=== PATIENT | female | born 1970 | race Caucasian/White ===

== ENCOUNTER → 2018-02-18 11:23 | Outpatient (CLI) | payer OTHER, SELFPAY ==
[2018-02-18 19:10] LABS: Basophils % 0.4 % (0.1-2.0); Eosinophils % 0.8 % (0.1-12.0); Hematocrit 39.3 % (37.0-47.0); Hemoglobin 12.4 g/dL (12.2-16.2); Lymphocytes # 0.8 K/mm3 (0.7-4.5); Lymphocytes % 17.5 K/mm3 (10-50); Mean Corpuscular HGB Conc 31.5 g/dL (31.8-35.4); Mean Corpuscular Hemoglobin 27.6 pg (27.0-31.2); Mean Corpuscular Volume 87.6 fl (81-99); Mean Platelet Volume 10.9 fl (7.4-10.4); Monocytes # 0.3 K/mm3 (0.1-1.0); Monocytes % 6.2 % (1.7-9.3); Neutrophils # 3.6 K/mm3 (1.8-7.8); Neutrophils % 75.1 % (37.0-80.0); Platelet Count 88 K/mm3 (142-424); Red Blood Count 4.49 M/mm3 (4.20-5.40); Red Cell Distribution Width 14.6 % (11.5-17.5); White Blood Count 4.7 K/mm3 (4.8-10.8)
[2018-02-18 19:35] LABS: Hemoglobin A1C 8.2 % (0.0-7.0)
[2018-02-18 19:53] LABS: Alanine Aminotransferase 38 U/L (12-78); Albumin Level 3.3 gm/dL (3.4-5.0); Albumin/Globulin Ratio 0.9 (1.1-1.8); Alkaline Phosphatase 95 U/L (46-116); Anion Gap 10.2 mEq/L (5-15); Aspartate Amino Transferase 35 U/L (15-37); Bilirubin,Total 0.2 mg/dL (0.2-1.0); Blood Urea Nitrogen 10 mg/dL (7-18); Calcium 8.2 mg/dL (8.5-10.1); Carbon Dioxide 31 mmol/L (21.0-32.0); Chloride 97 mmol/L (98-107); Cholesterol 135 mg/dL (140-200); Creatinine,Serum 0.83 mg/dL (0.55-1.02); Estimated Glomerular Filt Rate 73 ml/min (>60); GFR (African American) 89 ML/MIN (>60); Globulin 3.8 gm/dl (1.3-3.2); HDL Cholesterol 34 mg/dL (29-89); LDL Cholesterol 83 mg/dL (0-130); Potassium 3.2 mmoL/L (3.5-5.1); Sodium 135 mmol/L (136-145); T4 (Thyroxine) 7.5 ug/dl (4.7-13.3); Thyroid Stimulating Hormone 1.98 uIU/ml (0.358-3.740); Total Protein,Serum 7.1 gm/dL (6.4-8.2); Triglycerides 88 mg/dL (30-200); VLDL Cholesterol 18 mg/dL (0-40)
[2018-02-18 20:06] LABS: Glucose 410 mg/dL (74-106)
[2018-02-19 09:18] LABS: Creatinine, Urine 36.5 mg/dL (Not Estab.); Microalbumin, Urine 16.8 ug/mL (Not Estab.)
[2018-02-20 11:38] LABS: Vitamin D 25 Hydroxy 12.7 ng/mL (30.0-100.0)
== END ==
PROVIDERS: Visit Provider Nurse Practitioner Family
DX: E11.9 Type 2 diabetes mellitus without complications (principal)
CPT/HCPCS: 80053; 80061; 82043; 82570; 82652; 83036; 84436; 84443; 85025

== ENCOUNTER → 2018-03-16 15:37 | Outpatient (REF) | payer OTHER, SELFPAY ==
[2018-03-16 18:53] LABS: Amphetamine/Metha Screen,Urine Negative ng/mL (<1000); Barbiturates Screen,Urine Negative ng/mL (<200); Benzodiazepines Screen,Urine Negative ng/mL (200); Cannabinoid Screen,Urine Negative ng/mL (<50); Cocaine Screen,Urine Negative ng/g (<300); Methadone Screen,Urine Negative ng/mL (<300); Opiate Screen,Urine Negative ng/mL (<300); Phencyclidine Screen,Urine Negative ng/mL (<25)
== END ==
LOC: LAB 15:37
PROVIDERS: Visit Provider Nurse Practitioner Family
DX: Z79.899 Other long term (current) drug therapy (principal)
CPT/HCPCS: 80305

== ENCOUNTER → 2018-03-17 16:24 | Outpatient (CLI) | payer OTHER, SELFPAY ==
--- NOTE | 2018-03-17 16:26 | XR_ITS ---
XR chest 2V HISTORY: ITS.REASON: cough ORDERING PHYSICIAN: Jaqueline Jaeger PATIENT AGE: 47 years COMPARISON: FINDINGS: The cardiomediastinal silhouette and pulmonary vascularity are within normal limits. The lungs are clear without infiltrates, suspicious nodules, or pleural effusions. Degenerative changes are present in the thoracic spine.. IMPRESSION: No change with no acute finding
== END ==
PROVIDERS: PCP Nurse Practitioner Family; Visit Provider Nurse Practitioner Family
DX: R09.89 Other specified symptoms and signs involving the circulatory and respiratory systems (principal); R05 Cough; R06.2 Wheezing
CPT/HCPCS: 71046

== ENCOUNTER → 2018-09-17 13:45 | Outpatient (CLI) | payer OTHER, SELFPAY ==
--- NOTE | 2018-09-17 13:48 | XR_ITS ---
XR shoulder LT min 2V HISTORY: Follow-up fracture ITS.REASON: regular views and axillary view ORDERING PHYSICIAN: Kostas Luke MD PATIENT AGE: 47 years Comparison: 09/12/2018 FINDINGS: Comminuted fracture of the left humeral neck once again noted with medial displacement of the distal fracture fragment x 12 mm. No evidence of dislocation. IMPRESSION: No change comminuted displaced left humeral neck fracture
== END ==
PROVIDERS: PCP Nurse Practitioner Family; Visit Provider Orthopaedic Surgery
DX: S42.202A Unspecified fracture of upper end of left humerus, initial encounter for closed fracture (principal)
CPT/HCPCS: 73030

== ENCOUNTER → 2018-09-28 14:48 | Outpatient (CLI) | payer OTHER, SELFPAY ==
--- NOTE | 2018-09-28 14:49 | CT_ITS ---
CT shoulder LT wo con INDICATION: Shoulder pain and deformity, fracture following injury, evaluate fracture fragments and displacement ITS.REASON: evaluate fracture / without contrast ORDERING PHYSICIAN: Kostas Luke MD PATIENT AGE: 47 years COMPARISON: 09/17/2018 TECHNIQUE: Axial images are obtained without contrast. Sagittal and coronal reformatted images are reviewed as well. All CT scans at the facility use one or more dose reduction, viz: automated exposure control, ma/kV adjustment per patient size (including targeted exams where dose is matched to indication, i.e. head), or iterative reconstruction technique. FINDINGS: There is a comminuted displaced fracture of the proximal humerus. There are 3 main fracture fragments the fracture having a Y shaped 3-D reformatted images. The main distal fracture fragment is displaced medially by approximately 9 mm. There are a few comminuted fragments at this fracture line. Fragment also extends into the greater tuberosity and is not significantly displaced. There is no evidence of glenoid dislocation. There is increased density within the soft tissues about the fracture site which may be due to early calcification. Blood in this region is also a consideration. There is edema of the surrounding soft tissues. A small nodular opacity is present in the left upper lobe anteriorly 5 mm. IMPRESSION: Comminuted fracture of the neck of the left humerus with extension into the greater tuberosity with mild displacement of the main distal fracture fragment. No evidence of dislocation
== END ==
PROVIDERS: PCP Nurse Practitioner Family; Visit Provider Orthopaedic Surgery
DX: S42.209A Unspecified fracture of upper end of unspecified humerus, initial encounter for closed fracture (principal)
CPT/HCPCS: 73200

== ENCOUNTER → 2018-10-07 15:22 | Outpatient (CLI) | payer OTHER, SELFPAY ==
--- NOTE | 2018-10-07 15:25 | XR_ITS ---
XR shoulder LT min 2V Ordering Physician: Kostas Luke MD Patient Age: 48 years: Female HISTORY: ITS.REASON: internal, external and y views TECHNIQUE: 3 view left shoulder. COMPARISON :09/17/2018. FINDINGS Comminuted spiral fracture of the proximal left humerus extending up to the anatomical neck and I believe through the base of the greater tuberosity. AP view appears similar to the previous 09/17/2018 study. Medial displacement of distal fracture fragment on this view with early healing new bone formation evident.. The Y view shows anterior displacement of distal fracture fragment and angulation at the fracture. Actually the angulation with better seen on prior studies. As well as a mild fragmentation at this fracture The humeral head articulates with the glenoid but is rotated. AC joint intact. Upper left ribs intact IMPRESSION: Healing comminuted fracture through the proximal humerus. Is comminuted spiral Fracture Involves the surgical neck extends upward to involve greater tuberosity.. Early healing evident at the fracture.. The Angulation, & displacement persist with no prominent nor appreciable change in position since prior studies
== END ==
PROVIDERS: PCP Nurse Practitioner Family; Visit Provider Orthopaedic Surgery
DX: S42.202A Unspecified fracture of upper end of left humerus, initial encounter for closed fracture (principal)
CPT/HCPCS: 73030

== ENCOUNTER → 2018-10-27 13:15 | Outpatient (CLI) | payer OTHER, SELFPAY ==
--- NOTE | 2018-10-27 13:18 | XR_ITS ---
XR shoulder LT min 2V HISTORY: Follow-up fracture ITS.REASON: internal, external and y views ORDERING PHYSICIAN: Kostas Luke MD PATIENT AGE: 48 years Comparison: 10/07/2018 FINDINGS: There is a healing comminuted fracture involving the neck of the humerus. The distal fracture fragment is displaced medially by approximately 8 mm. There is increasing callus formation. No evidence of dislocation. IMPRESSION: Healing displaced fracture of the proximal left humerus
== END ==
PROVIDERS: PCP Emergency Medicine; Visit Provider Orthopaedic Surgery
DX: S42.202D Unspecified fracture of upper end of left humerus, subsequent encounter for fracture with routine healing (principal)
CPT/HCPCS: 73030

== ENCOUNTER 2018-12-10 11:00 | Outpatient (RCR) | payer OTHER, SELFPAY ==
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
== END 2018-12-10 11:10 | disposition home or self-care (01) ==
LOC: OT 11:00
PROVIDERS: Visit Provider Orthopaedic Surgery
DX: S42.202D Unspecified fracture of upper end of left humerus, subsequent encounter for fracture with routine healing (principal)
CPT/HCPCS: 97014; 97110; 97140; 97165; G0283

== ENCOUNTER → 2018-12-10 11:38 | Outpatient (CLI) | payer OTHER, SELFPAY ==
--- NOTE | 2018-12-10 11:42 | XR_ITS ---
XR shoulder LT min 2V HISTORY: Follow-up fracture ITS.REASON: follow up lt proximal humerus fracture ORDERING PHYSICIAN: Kostas Luke MD PATIENT AGE: 48 years Comparison: 10/27/2018 FINDINGS: Healing displaced proximal left humeral fracture once again noted. There is 2 cm medial displacement of the distal fracture fragment. There is abundant callus formation laterally. Fracture line is still visible on frontal view. There is subacromial stenosis with suspected rotator cuff tear. IMPRESSION: 1. No change in healing displaced humeral neck and proximal humeral shaft fracture. 2. Subacromial stenosis with high right humeral head suspicious for rotator cuff tear
== END ==
PROVIDERS: PCP Nurse Practitioner Family; Visit Provider Orthopaedic Surgery
DX: S42.202D Unspecified fracture of upper end of left humerus, subsequent encounter for fracture with routine healing (principal)
CPT/HCPCS: 73030

== ENCOUNTER 2020-05-03 16:44 | Emergency (ER) | payer SELFPAY ==
--- NOTE | 2020-05-03 16:43 | ECG_ITS ---
APPROVED REPORT Exam: Resting ECG HR:93 bpm ECG Measurements Heart Rate 93 AXES MD 156 P 21 QRSd 78 QRS 7 QT 368 T 23 QTc 457 <Conclusion> Normal sinus rhythm Normal ECG Electronically signed by : Marito Earl, 05/05/2020 11:45:53
[2020-05-03 16:44] VITALS: BP 132/81; PULSE 95; RESP 16; TEMP 37.7; O2SAT 98; BMI 35.4
--- NOTE | 2020-05-03 16:46 | XR_ITS ---
PROCEDURE: XR CHEST PORTABLE CLINICAL HISTORY: chest pain Smoker, chest pain COMPARISON: CXR CHEST(2 VIEWS-NOT PORTABLE) from 03/10/[address] CHEST W/ CONTRAST from 04/03/2016 CXR2V XR chest 2V from 03/17/2018 CXR2 XR chest AP from 09/12/2018 FINDINGS: The cardiomediastinal silhouette and pulmonary vascularity are within normal limits. The lungs are clear without infiltrates, suspicious nodules, or pleural effusions. Degenerative changes of the shoulders with old left proximal humerus fracture IMPRESSION: No acute findings. Dictated by: Cristian Mckeon MD 05/04/2020 08:33 Electronically signed by Cristian Mckeon MD in [place] 05/04/2020 08:33
--- NOTE | 2020-05-03 16:55 | HMH.EDGENADL ---
ED Disposition Clinical Impression: Chest pain, atypical Diabetes Qualifiers: Diabetes mellitus type: type 2 Diabetes mellitus communication center operator insulin use: without communication center operator use Diabetes mellitus complication status: without complication Qualified Code(s): E11.9 - Type 2 diabetes mellitus without complications Disposition: Home, Self-Care Condition on Discharge: Good Instructions: DI for Atypical Chest Pain, DI for Diabetes Type 2 Additional Instructions: You have been evaluated for chest pain, atypical. Please continue taking Tylenol and ibuprofen for pain. Restart taking metformin and follow-up with your primary care doctor as soon as available. Return to the emergency department if you have any new or worsening symptoms. Prescriptions: Metformin HCl [Glucophage 500mg Tablet] 500 mg PO BID #30 tab Transmission Status: Received by [facility] Referrals: Provider,Referral, [Primary Care Provider] - Forms: Work/School Release Time of Disposition: 19:39 - Critical Care Critical Care Time: No Attestation: On 05/03/20, the high probability of a clinically significant, sudden or life threatening deterioration of the following system(s) required my full and direct attention, intervention and personal management. The time I documented below is in addition to time spent performing reported procedures but includes the following listed in this critical care notation. Medical Decision Making - Kashif Inquiry Pt receiving controlled substance: No Vital Signs: 05/03/20 16:44 05/03/20 16:56 05/03/20 17:37 Temperature 99.8 F H Temperature Source Oral Pulse Rate [Right Radial] 95 H 93 H 91 H Respiratory Rate 16 Blood Pressure [Right Arm] 132/81 132/81 103/64 L Blood Pressure Mean [Right Arm] 98 98 77 Blood Pressure Source [Right Arm] Automatic Cuff Automatic Cuff Blood Pressure Position [Right Arm] Sitting Sitting Sitting 02 Sat by Pulse Oximetry 98 98 97 Oxygen Delivery Method Room Air Room Air Room Air 05/03/20 18:41 Temperature Temperature Source Pulse Rate [Right Radial] 100 H Respiratory Rate Blood Pressure [Right Arm] 134/98 H Blood Pressure Mean [Right Arm] 110 Blood Pressure Source [Right Arm] Automatic Cuff Blood Pressure Position [Right Arm] Sitting 02 Sat by Pulse Oximetry 98 Oxygen Delivery Method Room Air - Lab Data Lab Results 05/03/20 17:00: WBC 4.1 L, RBC 4.36, Hgb 12.7, Hct 38.6, MCV 88.4, MCH 29.1, MCHC 32.9, RDW 16.8, Plt Count 67 L, MPV 9.4, Neut % (Auto) 73.7, Lymph % (Auto) 18.1, [place] % (Auto) 5.8, Eos % (Auto) 2.0, Baso % (Auto) 0.5, Neut # (Auto) 3.0, Lymph # (Auto) 0.8, [place] # (Auto) 0.2, Eos # (Auto) 0.1, Baso # (Auto) 0.0 05/03/20 17:00: Troponin I < 0.01 05/03/20 17:00: Sodium 138, Potassium 3.9, Chloride 104, Carbon Dioxide 29, Anion Gap 8.9, BUN 15, Creatinine 0.60, Estimated Creat Clear 161, Estimated GFR 106, Est GFR ( Amer) 128, Glucose 217 H, Calcium 8.1 L 05/03/20 19:00: Troponin I < 0.01 Result diagrams: 05/03/20 17:00 05/03/20 17:00 Orders (Tests/Meds): ED MEDICATIONS Discontinued Medications Generic Name Dose Route Start Last Admin Trade Name Freq PRN Reason Stop Dose Admin Acetaminophen 1,000 mg 05/03/20 19:11 05/03/20 19:13 Tylenol 500mg Tablet PO 05/03/20 19:12 1,000 mg ONCE ONE Administration ORDERS Category Date Time Status XR chest portable Stat Exams 05/03/20 16:46 Taken Troponin I Q3H Lab 05/03/20 22:15 Ordered Troponin I Q3H Lab 05/03/20 23:00 Ordered Troponin I Q3H Lab 05/04/20 01:15 Ordered Troponin I Stat Lab 05/03/20 19:01 Ordered - ECG Data Tracing #1 Sinus rhythm with ventricular rate of 93 bpm. QRS 78, QTc 457. Medical Decision Narrative: Summary this is a 49-year-old female with history of type 2 diabetes presenting to the emergency department with chest pain. Patient is stable on arrival. Vital signs within normal limits. Differential diagnoses include ACS, vasospasm,
[2020-05-03 16:56] VITALS: BP 132/81; PULSE 93; O2SAT 98
[2020-05-03 17:11] LABS: Basophils % 0.5 % (0.1-2.0); Eosinophils # 0.1 K/mm3 (0.0-0.4); Hematocrit 38.6 % (37.0-47.0); Hemoglobin 12.7 g/dL (12.2-16.2); Lymphocytes # 0.8 K/mm3 (0.7-4.5); Lymphocytes % 18.1 % (10-50); Mean Corpuscular HGB Conc 32.9 g/dL (31.8-35.4); Mean Corpuscular Hemoglobin 29.1 pg (27.0-31.2); Mean Corpuscular Volume 88.4 fl (81-99); Mean Platelet Volume 9.4 fl (7.4-10.4); Monocytes # 0.2 K/mm3 (0.1-1.0); Monocytes % 5.8 % (1.7-9.3); Neutrophils % 73.7 % (37.0-80.0); Platelet Count 67 K/mm3 (142-424); Red Blood Count 4.36 M/mm3 (4.20-5.40); Red Cell Distribution Width 16.8 % (11.5-17.5); White Blood Count 4.1 K/mm3 (4.8-10.8)
[2020-05-03 17:15] LABS: Chloride 104 mmol/L (98-107); Potassium 3.9 mmoL/L (3.5-5.1); Sodium 138 mmol/L (136-145)
[2020-05-03 17:18] LABS: Blood Urea Nitrogen 15 mg/dl (7-17); Creatinine Clearance Estimated 161 mL/min (50-200); Estimated Glomerular Filt Rate 106 ml/min (>60); GFR (African American) 128 ML/MIN (>60)
[2020-05-03 17:19] LABS: Anion Gap 8.9 mEq/L (5-15); Calcium 8.1 mg/dl (8.4-10.2); Carbon Dioxide 29 mmol/L (22.0-30.0); Glucose 217 mg/dl (74-100)
[2020-05-03 17:34] LABS: Troponin I < 0.01 ng/ml (0.00-0.034)
[2020-05-03 17:37] VITALS: BP 103/64; PULSE 91; O2SAT 97
[2020-05-03 18:41] VITALS: BP 134/98; PULSE 100; O2SAT 98
[2020-05-03 19:52] LABS: Troponin I < 0.01 ng/ml (0.00-0.034)
[2020-05-03 20:34] VITALS: BP 106/70; PULSE 83; RESP 16; TEMP 37.3; O2SAT 99
== END 2020-05-03 20:37 | disposition home or self-care (01) ==
PROVIDERS: Emergency Provider Emergency Medicine
DX: R07.89 Other chest pain (principal); K21.9 Gastro-esophageal reflux disease without esophagitis; E11.65 Type 2 diabetes mellitus with hyperglycemia; I10 Essential (primary) hypertension; E78.5 Hyperlipidemia, unspecified; Z88.1 Allergy status to other antibiotic agents; Z79.84 Long term (current) use of oral hypoglycemic drugs; Z79.899 Other long term (current) drug therapy
CPT/HCPCS: 71045; 80048; 84484; 85025; 93005; 99283

== ENCOUNTER 2020-05-13 17:33 | Emergency (ER) | payer MEDICAID, SELFPAY ==
--- NOTE | 2020-05-13 | ECG_ITS ---
APPROVED REPORT Exam: Resting ECG HR:108 bpm ECG Measurements Heart Rate 108 AXES [place] 162 P 38 QRSd 76 QRS 14 QT 344 T 23 QTc 460 <Conclusion> Sinus tachycardia Possible Left atrial enlargement Borderline ECG Electronically signed by : Dc Ellington, 05/14/2020 07:59:45
[2020-05-13 17:33] VITALS: BP 158/87; PULSE 107; RESP 20; TEMP 36.7; O2SAT 100; BMI 35.4
[2020-05-13 17:35] VITALS: BP 158/87; PULSE 107; RESP 22; O2SAT 100
[2020-05-13 17:38] VITALS: BMI 35.4
--- NOTE | 2020-05-13 17:38 | CT_ITS ---
PROCEDURE: CT ABDOMEN PELVIS WO CON CLINICAL INDICATION: abd swelling COMPARISON: ABDPELW CT ABD PELVIS W/ CONTRAST from 04/03/2016 TECHNIQUE: Axial images obtained with sagittal and coronal reformats. All CT scans at the facility use one or more dose reduction, viz: automated exposure control, ma/kV adjustment per patient size (including targeted exams where dose is matched to indication, i.e. head), or iterative reconstruction technique. FINDINGS: Lower thorax: The lower lung chatterjee are clear and there is no pleural fluid. There is borderline cardiomegaly. ABDOMEN: Liver: The overall liver is somewhat small with nodularity of the contour which is more prominent than on the previous CT scan abdomen and pelvis 04/03/2016. There is marked abdominal ascites. Prominent varices are seen just anterior and superior to the left lobe of the liver and perisplenic varices are noted as well. Gallbladder: The gallbladder is normal in size containing several partially calcified stones. Pancreas: No masses or peripancreatic fluid collections. Spleen: Definite splenomegaly showing slight interval increase in splenic size from the previous CT scan. Adrenals: unremarkable Kidneys/ureters: unremarkable no renal or ureteral calculi and there is no obstructive uropathy of either kidney. ABDOMEN & PELVIS: Stomach bowel: Stomach is moderately distended with ingested food particles. The small bowel loops are normal in caliber seen floating amongst the ascitic fluid. There is scattered stool and gas seen throughout the colon Peritoneum: Marked abdominal ascites with fluid extending into the pelvis and into the cul-de-sac. Lymph nodes: No enlarged lymph nodes apparent. Vasculature: No evidence of abdominal aortic aneurysm. No retroperitoneal hemorrhage evident. Bones: No acute fracture Other: There is prominent diffuse generalized anasarca of the subcutaneous tissues of the abdominal wall and pelvic wall PELVIS:, moderate ascitic fluid in the cul-de-sac as noted Reproductive: unremarkable Bladder: The urinary bladder is decompressed. Appendix: Not definitely visualize in view of the large amount of ascitic fluid but there are no findings to suggest appendicitis. IMPRESSION: Findings all consistent with advanced cirrhosis of the liver with prominent abdominal ascites and for hypertension, nodularity of the liver contour, generalized splenomegaly and varices as mentioned along with prominent generalized anasarca of the subcutaneous tissues Dictated by: Dr. Narendra Dutton MD 05/13/2020 19:[address] Narendra Dutton MD in [place] 05/13/2020 19:08
--- NOTE | 2020-05-13 17:38 | PC.NURSE ---
ER MD gave verbal orders on pt for Ct abd/pelvis no contrast, states no chest pain work up on pt, states pt was more concerned when speaking to him about abd swelling.
--- NOTE | 2020-05-13 18:02 | PC.NURSE ---
Pt with rad
[2020-05-13 18:09] VITALS: BP 128/78; PULSE 101; O2SAT 100
[2020-05-13 18:48] VITALS: BP 121/74; PULSE 102; O2SAT 99
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
--- NOTE | 2020-05-13 19:04 | PC.NURSE ---
went to d/c pt, pt reports chest pain, notified ER MD. ER MD at to speak with pt. ER MD gave verbal order for Morphine 4mg IM pt waiting on a funeral limousine driver
[2020-05-13 19:28] VITALS: BP 133/76; PULSE 98; RESP 20; TEMP 36.7; O2SAT 100
--- NOTE | 2020-05-13 19:30 | PC.NURSE ---
Instructed pt that is she began to feel worse or if pain does not improve to return to the ER, pt verbalized understanding. Pt states she understood instructions and POC as explained per ER MD.
== END 2020-05-13 19:30 | disposition home or self-care (01) ==
PROVIDERS: Emergency Provider Family Medicine
DX: L56.8 Other specified acute skin changes due to ultraviolet radiation (principal); E11.9 Type 2 diabetes mellitus without complications; I10 Essential (primary) hypertension; E78.5 Hyperlipidemia, unspecified; K21.9 Gastro-esophageal reflux disease without esophagitis; Z79.84 Long term (current) use of oral hypoglycemic drugs; Z88.1 Allergy status to other antibiotic agents; Z79.899 Other long term (current) drug therapy
CPT/HCPCS: 74176; 93005; 96372; 99283

== ENCOUNTER 2020-06-02 13:31 | Emergency (ER) | payer MEDICAID, SELFPAY ==
[2020-06-02 13:32] VITALS: BP 137/89; PULSE 91; RESP 18; TEMP 37; O2SAT 100; BMI 31.6
--- NOTE | 2020-06-02 13:47 | XR_ITS ---
PROCEDURE: XR FOOT LT MIN 3V CLINICAL INDICATION: pain The COMPARISON: FTL3 FOOT-LT-3 VIEWS from 01/07/2015 FINDINGS: There is mild hallux valgus with osteoarthritic change at the 1st metatarsophalangeal joint. 2 extra ossicles are present along the medial aspect of the 1st MTP joint. No acute fracture or dislocation is evident. There is thickening of the proximal phalanx of the 3rd digit. Calcification is present along the plantar surface of the foot anterior to a mildly prominent calcaneal spur. Osteoarthritic changes are present at the talonavicular joint and the cuboid cuneiform joint. Calcification is present along the medial aspect of the foot with a type 2 os navicularis Other findings:None. IMPRESSION: Degenerative changes as described above slightly worse from the previous exam. No acute finding. Dictated by: Cristian Mckeon MD 06/02/2020 14:28 Electronically signed by Cristian Mckeon MD in [place] 06/02/2020 14:28
[2020-06-02 13:58] VITALS: BP 134/73; PULSE 91; RESP 20; O2SAT 98
--- NOTE | 2020-06-02 13:58 | HMH.EDGENADL ---
ED Disposition Clinical Impression: Right foot sprain, Elevated transaminase level, Dyspepsia Disposition: Home, Self-Care Condition on Discharge: Good Instructions: Sprain Prescriptions: Ibuprofen [Ibuprofen 800mg Tablet] 800 mg PO TIDP PRN #20 tab PRN Reason: Moderate Pain Transmission Status: Pending to [id number] Referrals: Saniya Mayers APRN [Primary Care Provider] - Louie Washburn MD [Staff Physician] - 3 days Time of Disposition: 15:24 - Critical Care Critical Care Time: No Attestation: On , the high probability of a clinically significant, sudden or life threatening deterioration of the following system(s) required my full and direct attention, intervention and personal management. The time I documented below is in addition to time spent performing reported procedures but includes the following listed in this critical care notation. Medical Decision Making - Kashif Inquiry Pt receiving controlled substance: No Vital Signs: 06/02/20 13:32 06/02/20 13:58 06/02/20 14:51 Temperature 98.6 F Temperature Source Oral Pulse Rate [Right] 91 H 91 H 95 H Respiratory Rate 18 20 20 Blood Pressure [Right Arm] 137/89 134/73 128/74 Blood Pressure Mean [Right Arm] 105 93 92 Blood Pressure Source [Right Arm] Automatic Cuff Automatic Cuff Blood Pressure Position [Right Arm] Supine Supine 02 Sat by Pulse Oximetry 100 98 98 Oxygen Delivery Method Room Air Room Air Room Air - Lab Data Lab Results 06/02/20 14:23: WBC 3.1 L, RBC 4.29, Hgb 12.6, Hct 38.9, MCV 90.8, MCH 29.5, MCHC 32.5, RDW 16.4, Plt Count 66 L, MPV 11.4 H, Neut % (Auto) 69.7, Lymph % (Auto) 21.4, [place] % (Auto) 6.6, Eos % (Auto) 1.8, Baso % (Auto) 0.4, Neut # (Auto) 2.2, Lymph # (Auto) 0.7, [place] # (Auto) 0.2, Eos # (Auto) 0.1, Baso # (Auto) 0.0 06/02/20 14:23: Sodium 136, Potassium 3.1 L, Chloride 106, Carbon Dioxide 24, Anion Gap 9.1, BUN 12, Creatinine 0.50 L, Estimated Creat Clear 183, Estimated GFR 131, Est GFR ( Amer) 158, Glucose 258 H, Calcium 8.3 L, Total Bilirubin 3.4 H, AST 488 H*, ALT 323 H*, Alkaline Phosphatase 143 H, Total Protein 7.7, Albumin 3.5, Globulin 4.2 H, Albumin/Globulin Ratio 0.8 L, Lipase 265 Result diagrams: 06/02/20 14:23 06/02/20 14:23 Orders (Tests/Meds): ED MEDICATIONS Generic Name Dose Route Start Last Admin Trade Name Freq PRN Reason Stop Dose Admin Diphenhydramine HCl 25 mg 06/02/20 14:00 06/02/20 14:30 Benadryl Elixir 12.5mg/5ml Udc PO 07/02/20 13:59 25 mg ONCE BETTINA Administration Discontinued Medications Generic Name Dose Route Start Last Admin Trade Name Freq PRN Reason Stop Dose Admin Al Hydrox/Mg Hydrox/Simethicone 30 ml 06/02/20 13:46 06/02/20 14:30 Maalox 30ml Udc PO 06/02/20 13:47 30 ml ONCE ONE Administration Sodium Chloride 1,000 mls @ 999 mls/hr 06/02/20 14:00 Sod Chlor 0.9% 1000ml Bag IV 06/02/20 15:00 .Q1H1M BETTINA Lidocaine HCl 15 ml 06/02/20 13:46 06/02/20 14:30 Lidocaine 2% Viscous Solution 15ml Udc PO 06/02/20 13:47 15 ml ONCE ONE Administration Ondansetron HCl 4 mg 06/02/20 13:46 Zofran 4mg/2ml Vial IV 06/02/20 13:47 ONCE ONE - Radiology Data #1 IMPRESSION: Degenerative changes as described above slightly worse from the previous exam. No acute finding. - Reevaluation(s) Time: 15:22 Reevaluation #1: On reevaluation, patient is feeling better. Repeat abdominal exam is improved. No vomiting. Tolerating oral intake. Patient does have elevated liver enzymes as well as elevated bilirubin. Patient's lipase is normal. I did explain to her that I would like to obtain CT scan and possible evaluation by gastroenterology. Patient is declining at this time because she feels better. She states that she does not need any more testing. I did explain to her the risks and benefits of not pursuing further care. She verbalized understanding. Is alert and oriented. She is asking for
[2020-06-02 14:41] LABS: Basophils % 0.4 % (0.1-2.0); Eosinophils # 0.1 K/mm3 (0.0-0.4); Eosinophils % 1.8 % (0.1-12.0); Hematocrit 38.9 % (37.0-47.0); Hemoglobin 12.6 g/dL (12.2-16.2); Lymphocytes # 0.7 K/mm3 (0.7-4.5); Lymphocytes % 21.4 % (10-50); Mean Corpuscular HGB Conc 32.5 g/dL (31.8-35.4); Mean Corpuscular Hemoglobin 29.5 pg (27.0-31.2); Mean Corpuscular Volume 90.8 fl (81-99); Mean Platelet Volume 11.4 fl (7.4-10.4); Monocytes # 0.2 K/mm3 (0.1-1.0); Monocytes % 6.6 % (1.7-9.3); Neutrophils # 2.2 K/mm3 (1.8-7.8); Neutrophils % 69.7 % (37.0-80.0); Platelet Count 66 K/mm3 (142-424); Red Blood Count 4.29 M/mm3 (4.20-5.40); Red Cell Distribution Width 16.4 % (11.5-17.5); White Blood Count 3.1 K/mm3 (4.8-10.8)
[2020-06-02 14:49] LABS: Chloride 106 mmol/L (98-107); Potassium 3.1 mmoL/L (3.5-5.1); Sodium 136 mmol/L (136-145)
[2020-06-02 14:51] VITALS: BP 128/74; PULSE 95; RESP 20; O2SAT 98
[2020-06-02 14:51] LABS: Blood Urea Nitrogen 12 mg/dl (7-17); Creatinine Clearance Estimated 183 mL/min (50-200); Estimated Glomerular Filt Rate 131 ml/min (>60); GFR (African American) 158 ML/MIN (>60)
[2020-06-02 14:52] LABS: Alanine Aminotransferase 323 U/L (12-78); Albumin Level 3.5 g/dl (3.5-5.0); Albumin/Globulin Ratio 0.8 (1.1-1.8); Alkaline Phosphatase 143 U/L (38-126); Anion Gap 9.1 mEq/L (5-15); Aspartate Amino Transferase 488 U/L (14-36); Bilirubin,Total 3.4 mg/dl (0.2-1.3); Calcium 8.3 mg/dl (8.4-10.2); Carbon Dioxide 24 mmol/L (22.0-30.0); Globulin 4.2 g/dL (1.3-3.2); Glucose 258 mg/dl (74-100); Lipase 265 U/L (23-300); Total Protein,Serum 7.7 g/dl (6.3-8.2)
[2020-06-02 15:33] VITALS: BP 132/73; PULSE 90; RESP 16; TEMP 36.9; O2SAT 99
== END 2020-06-02 15:34 | disposition home or self-care (01) ==
PROVIDERS: Emergency Provider Emergency Medicine; PCP Nurse Practitioner Family
DX: S93.601A Unspecified sprain of right foot, initial encounter (principal); X50.1XXA Overexertion from prolonged static or awkward postures, initial encounter; R10.13 Epigastric pain; R74.0 Nonspecific elevation of levels of transaminase and lactic acid dehydrogenase [LDH]; E11.65 Type 2 diabetes mellitus with hyperglycemia; I10 Essential (primary) hypertension; K21.9 Gastro-esophageal reflux disease without esophagitis; E78.5 Hyperlipidemia, unspecified; F33.1 Major depressive disorder, recurrent, moderate
CPT/HCPCS: 73630; 80053; 83690; 85025; 96365; 96375; 99283

== ENCOUNTER 2020-06-22 16:16 | Inpatient (IN) | payer MEDICAID, SELFPAY ==
[2020-06-22 16:18] VITALS: BP 129/85; PULSE 105; RESP 14; TEMP 36.9; O2SAT 98; BMI 36.1
--- NOTE | 2020-06-22 16:40 | US_ITS ---
PROCEDURE: US ABDOMEN LIMITED CLINICAL INDICATION: swelling, pain History of jaundice and cirrhosis. COMPARISON: CT ABDOMEN PELVIS WO CON from 05/13/2020 FINDINGS: Free fluid/ascites is seen in all 4 quadrants of the abdomen. PANCREAS: Unremarkable. No obvious mass or abnormal fluid collection. No ductal dilatation LIVER: Overall there coarse and heterogeneous echotexture of the liver parenchyma, consistent with cirrhosis.. No intrahepatic biliary ductal dilatation evident. There is appropriate direction of blood flow within a non dilated portal vein RIGHT KIDNEY: Unremarkable. Normal size and echogenicity. No hydronephrosis GALLBLADDER: The gallbladder is contracted. Demonstrated nonspecific 8.9 millimeter wall thickening. Minimal pericholecystic fluid is seen. No intraluminal gallbladder stone is seen. IMPRESSION: 1.Coarse/heterogeneous echotexture of the liver parenchyma, consistent with cirrhosis. 2. Ascites. 3. Contracted gallbladder with diffuse nonspecific wall thickening, there is can be seen in ascites. 4. Right kidney within normal limits. Dictated by: Rachel Zaidi 06/22/2020 18:26 Electronically signed by Rachel Zaidi in [place] 06/22/2020 18:26
[2020-06-22 16:50] LABS: Basophils % 0.4 % (0.1-2.0); Eosinophils % 1.2 % (0.1-12.0); Hematocrit 38.6 % (37.0-47.0); Lymphocytes # 0.9 K/mm3 (0.7-4.5); Lymphocytes % 24.6 % (10-50); Mean Corpuscular HGB Conc 33.6 g/dL (31.8-35.4); Mean Corpuscular Hemoglobin 30.5 pg (27.0-31.2); Mean Corpuscular Volume 90.7 fl (81-99); Mean Platelet Volume 10.5 fl (7.4-10.4); Monocytes # 0.3 K/mm3 (0.1-1.0); Monocytes % 9.3 % (1.7-9.3); Neutrophils # 2.2 K/mm3 (1.8-7.8); Neutrophils % 64.5 % (37.0-80.0); Platelet Count 55 K/mm3 (142-424); Red Blood Count 4.25 M/mm3 (4.20-5.40); Red Cell Distribution Width 17.9 % (11.5-17.5); White Blood Count 3.5 K/mm3 (4.8-10.8)
[2020-06-22 16:52] LABS: Chloride 102 mmol/L (98-107); Potassium 3.6 mmoL/L (3.5-5.1); Sodium 137 mmol/L (136-145)
[2020-06-22 16:54] LABS: Blood Urea Nitrogen 10 mg/dl (7-17); Creatinine Clearance Estimated 197 mL/min (50-200); Estimated Glomerular Filt Rate 131 ml/min (>60); GFR (African American) 158 ML/MIN (>60)
[2020-06-22 16:55] LABS: Alanine Aminotransferase 284 U/L (12-78); Albumin Level 3.3 g/dl (3.5-5.0); Albumin/Globulin Ratio 0.7 (1.1-1.8); Alkaline Phosphatase 114 U/L (38-126); Anion Gap 9.6 mEq/L (5-15); Aspartate Amino Transferase 473 U/L (14-36); Bilirubin,Direct 4.6 mg/dl (0.0-0.4); Bilirubin,Indirect 1.5 mg/dL (0.0-0.9); Bilirubin,Total 6.1 mg/dl (0.2-1.3); Carbon Dioxide 29 mmol/L (22.0-30.0); Globulin 4.7 g/dL (1.3-3.2); Glucose 152 mg/dl (74-100); Lipase 102 U/L (23-300)
--- NOTE | 2020-06-22 17:00 | HMH.EDGENADL ---
ED Disposition Clinical Impression: Cirrhosis Qualifiers: Hepatic cirrhosis type: alcoholic cirrhosis Ascites presence: with ascites Qualified Code(s): K70.31 - Alcoholic cirrhosis of liver with ascites Diabetes Qualifiers: Diabetes mellitus type: type 2 Diabetes mellitus termite control servicer insulin use: without termite control servicer use Diabetes mellitus complication status: without complication Qualified Code(s): E11.9 - Type 2 diabetes mellitus without complications Disposition: Admitted as Observation Condition on Discharge: Fair Time of Disposition: 20:29 - Critical Care Critical Care Time: No Attestation: On 06/22/20, the high probability of a clinically significant, sudden or life threatening deterioration of the following system(s) required my full and direct attention, intervention and personal management. The time I documented below is in addition to time spent performing reported procedures but includes the following listed in this critical care notation. Medical Decision Making - Medical Records Medical records reviewed: Yes: I reviewed the patient's medical records. - Kashif Inquiry Pt receiving controlled substance: No Vital Signs: 06/22/20 16:18 06/22/20 18:30 06/22/20 18:52 Temperature 98.4 F 98.4 F Temperature Source Oral Oral Pulse Rate 88 Pulse Rate [Left Radial] 105 H 88 Respiratory Rate 14 20 20 Blood Pressure 132/88 Blood Pressure [Right Arm] 129/85 132/88 Blood Pressure Mean [Right Arm] 99 102 Blood Pressure Source Automatic Cuff Blood Pressure Source [Right Arm] Automatic Cuff Automatic Cuff Blood Pressure Position Sitting Blood Pressure Position [Right Arm] Sitting Supine 02 Sat by Pulse Oximetry 98 100 Oxygen Delivery Method Room Air Room Air Room Air 06/22/20 18:55 Temperature 99.4 F Temperature Source Oral Pulse Rate Pulse Rate [Left Radial] 89 Respiratory Rate 16 Blood Pressure Blood Pressure [Right Arm] 140/78 Blood Pressure Mean [Right Arm] 98 Blood Pressure Source Blood Pressure Source [Right Arm] Manual Cuff/ Auscultation Blood Pressure Position Blood Pressure Position [Right Arm] Sitting 02 Sat by Pulse Oximetry 99 Oxygen Delivery Method Room Air - Lab Data Lab Results 06/22/20 16:35: WBC 3.5 L, RBC 4.25, Hgb 13.0, Hct 38.6, MCV 90.7, MCH 30.5, MCHC 33.6, RDW 17.9 H, Plt Count 55 L, MPV 10.5 H, Neut % (Auto) 64.5, Lymph % (Auto) 24.6, [place] % (Auto) 9.3, Eos % (Auto) 1.2, Baso % (Auto) 0.4, Neut # (Auto) 2.2, Lymph # (Auto) 0.9, [place] # (Auto) 0.3, Eos # (Auto) 0.0, Baso # (Auto) 0.0 06/22/20 16:35: Sodium 137, Potassium 3.6, Chloride 102, Carbon Dioxide 29, Anion Gap 9.6, BUN 10, Creatinine 0.50 L, Estimated Creat Clear 197, Estimated GFR 131, Est GFR ( Amer) 158, Glucose 152 H, Calcium 8.0 L, Total Bilirubin 6.1 H, Direct Bilirubin 4.6 H, Indirect Bilirubin 1.5 H, AST 473 H*, ALT 284 H, Alkaline Phosphatase 114, Total Protein 8.0, Albumin 3.3 L, Globulin 4.7 H, Albumin/Globulin Ratio 0.7 L, Lipase 102 06/22/20 16:50: Acetaminophen < 10 L Result diagrams: 06/22/20 16:35 06/22/20 16:35 Orders (Tests/Meds): ED MEDICATIONS Generic Name Dose Route Start Last Admin Trade Name Freq PRN Reason Stop Dose Admin Ibuprofen 400 mg 06/22/20 18:47 Motrin 400mg Tablet PO 07/22/20 18:46 Q6HP PRN Mild Pain Insulin Human Lispro 0 unit 06/22/20 21:00 Humalog 100 Units/Ml 3ml Vial (Ssi) SQ 07/22/20 20:59 ACHS BETTINA Protocol Ondansetron HCl 4 mg 06/22/20 18:47 Zofran 4mg/2ml Vial IV 07/22/20 18:46 Q8HP PRN Nausea ORDERS Category Date Time Status Consult to Gastroenterology [CONS] Routine Cons 06/22/20 18:36 Active US RUQ [US abdomen limited] Stat Exams 06/22/20 16:40 Taken Hepatitis Panel (4) Stat Lab 06/22/20 16:35 Received - Radiology Data #1 CT 05/13/20 IMPRESSION: Findings all consistent with advanced cirrhosis of the liver with prominent abdominal ascites and for hypertension, nodularit
--- NOTE | 2020-06-22 17:29 | PC.NURSE ---
Dr. Mendez aware of critical labs.
--- NOTE | 2020-06-22 17:51 | PC.NURSE ---
er doc speaking to Saniya at this time
[2020-06-22 18:30] VITALS: BP 132/88; PULSE 88; RESP 20; O2SAT 100
[2020-06-22 18:47] LABS: Acetaminophen < 10 ug/ml (10-30)
--- NOTE | 2020-06-22 18:50 | PC.NURSE ---
Report called to Graz[facility]. Will come get the pt when available
[2020-06-22 18:52] VITALS: BP 132/88; PULSE 88; RESP 20; TEMP 36.9; O2SAT 100
[2020-06-22 18:55] VITALS: BP 132/75; BP 140/78; PULSE 83; PULSE 89; RESP 16; TEMP 36.5; TEMP 37.4; O2SAT 98; O2SAT 99; BMI 35.4
--- NOTE | 2020-06-22 18:55 | PC.NURSE ---
Pt arrived to floor at this time via w/c
[2020-06-22 20:00] VITALS: O2SAT 99
[2020-06-22 21:26] LABS: Microscopic, Urine URINE MICROSCOPIC (MICROSCOPIC)
[2020-06-22 21:34] LABS: Appearance,Urine CLEAR (Clear); Blood, Urine TRACE-I (Negative); Color,Urine DK YELLOW (Yellow); Glucose,Urine (UA) Negative (Negative); Ketones,Urine Negative (Negative); Leukocyte Esterase,Urine Negative (Negative); Nitrate,Urine Negative (Negative); Protein,Urine Negative (Negative); Urobilinogen,Urine >=8.0 EU/dl (0.2)
[2020-06-22 21:51] LABS: Bacteria,Urine 1+ /lpf; Bilirubin,Urine 2+ (Negative); Mucus,Urine 1+ /lpf
[2020-06-22 22:08] LABS: POC Glucose,Bedside 172 (70-110)
[2020-06-23 04:00] VITALS: BP 111/70; PULSE 75; RESP 18; TEMP 37.2; O2SAT 99
--- NOTE | 2020-06-23 04:50 | PC.NURSE ---
Pt new admit at start of shift. Pt has rested well this shift w/o complaints reported to staff. No SOA, tenderness or pain in regards to abdominal distention when assessed. Pt has remained NPO since midnight and took a shower in preparation for Gastro consult in AM.
[2020-06-23 05:21] VITALS: BMI 35.3
[2020-06-23 06:22] LABS: POC Glucose,Bedside 88 (70-110)
--- NOTE | 2020-06-23 07:00 | PC.NURSE ---
Pts medication locked in drawer for pharmacy.
--- NOTE | 2020-06-23 07:47 | P.CONPHA_ITS ---
[facility] Pharmacy VTE Monitoring - Patient Demographics Admission date: 06/22/20 Report Date: 06/23/20 Time: 07:47 Allergies/Adverse Reactions: Patient Allergies doxycycline [DOXYCYCLINE] Allergy (Mild, Verified 06/22/20 15:27) NA-NAUSEA/VOMITING Height: 1.6 m Weight: 90.435 kg Patient Problems: Current Active Problems (Last Updated 02/18/18 @ 11:27 by Saniya Mayers APRN) Cirrhosis (Acute) Diabetes (Chronic) - VTE Risk Labs: VTE Related Lab Results Hgb 13.0 g/dL (12.2-16.2) 06/22/20 16:35 Hct 38.6 % (37.0-47.0) 06/22/20 16:35 Plt Count 55 K/mm3 (142-424) L 06/22/20 16:35 BUN 10 mg/dl (7-17) 06/22/20 16:35 Creatinine 0.50 mg/dl (0.52-1.04) L 06/22/20 16:35 Estimated Creat Clear 197 mL/min (50-200) 06/22/20 16:35 Was VTE Risk Assessment Performed: Yes VTE Score: 3 VTE Risk Level: Low Risk Clinical Trial Participant: No - Prophylaxis VTE Prophylaxis Ordered?: Yes Types of VTE Prophylaxis: TEDS Knee High Location of Applied Device: Bilateral Lower Extremeties
[2020-06-23 08:00] VITALS: BP 106/70; PULSE 65; RESP 19; TEMP 36.7; O2SAT 100
[2020-06-23 08:24] LABS: Basophils % 0.4 % (0.1-2.0); Eosinophils # 0.1 K/mm3 (0.0-0.4); Eosinophils % 2.1 % (0.1-12.0); Hematocrit 39.6 % (37.0-47.0); Hemoglobin 12.8 g/dL (12.2-16.2); Lymphocytes # 0.7 K/mm3 (0.7-4.5); Lymphocytes % 20.6 % (10-50); Mean Corpuscular HGB Conc 32.3 g/dL (31.8-35.4); Mean Corpuscular Hemoglobin 30.4 pg (27.0-31.2); Mean Corpuscular Volume 94.1 fl (81-99); Mean Platelet Volume 10.2 fl (7.4-10.4); Monocytes # 0.3 K/mm3 (0.1-1.0); Monocytes % 10.6 % (1.7-9.3); Neutrophils # 2.2 K/mm3 (1.8-7.8); Neutrophils % 66.3 % (37.0-80.0); Platelet Count 58 K/mm3 (142-424); Red Blood Count 4.21 M/mm3 (4.20-5.40); Red Cell Distribution Width 18.2 % (11.5-17.5); White Blood Count 3.3 K/mm3 (4.8-10.8)
[2020-06-23 08:30] LABS: Chloride 103 mmol/L (98-107); Potassium 4.1 mmoL/L (3.5-5.1); Sodium 139 mmol/L (136-145)
[2020-06-23 08:33] LABS: Alanine Aminotransferase 284 U/L (12-78); Albumin Level 3.2 g/dl (3.5-5.0); Alkaline Phosphatase 115 U/L (38-126); Anion Gap 8.1 mEq/L (5-15); Aspartate Amino Transferase 533 U/L (14-36); Bilirubin,Total 6.3 mg/dl (0.2-1.3); Blood Urea Nitrogen 10 mg/dl (7-17); Carbon Dioxide 32 mmol/L (22.0-30.0); Creatinine Clearance Estimated 192 mL/min (50-200); Estimated Glomerular Filt Rate 131 ml/min (>60); GFR (African American) 158 ML/MIN (>60); Total Protein,Serum 7.9 g/dl (6.3-8.2)
[2020-06-23 08:34] LABS: Calcium 8.3 mg/dl (8.4-10.2); Glucose 110 mg/dl (74-100)
--- NOTE | 2020-06-23 09:26 | HMH.HP ---
*Admission Date: 06/22/20 *Chief complaint: Jaundice *History of present illness: 49-year-old female presented to the office with complaints of dark urine and yellowing of the eyes. After evaluation patient was sent to the ER. Patient states for the last week and a half she has had dark dori-colored urine thought she may become and wanted a test that was negative. Patient states she woke up yesterday morning noticing her skin and her eyes were yellow in her abdominal was distended. Patient was admitted for elevated liver enzymes and ascites. Consult placed for Dr. Washburn for possible paracentesis. Patient states she was told some time ago that she had some liver failure but she was unsure who her doctor was or what work-up had been done. Patient denies drinking alcohol. [facility] History I have reviewed the patient's past medical history: Yes Medical History: Reports:: Depression, Diabetes Mellitus Type 2, Gastroesophageal Reflux Disease(GERD), Hyperlipidemia, Hypertension Denies:: Cancer, Diabetes Mellitus Type 1, MRSA *Have you ever received a pneumonia vaccine?: Yes *Have you received a flu vaccine this season?: No Other Medical History: Reports: Other Other Surgeries: Yes: No Previous Surgery, Cardiac Catheterization, Colonoscopy, EGD, Other Amputation: Yes Fractures: No - *Social History Smoking Status: Never smoker Alcohol Intake: former Substance Use Type: denies use *Occupational Status:: employed Housing: other Household Members: other *Travel in the last 8 weeks: None - Psychiatric History Pschychiatric History:: Reports:: Depression Family Hx:: Cancer Review of Systems - Review of Systems Review of systems:: pertinent systems reviewed and negative unless documented below - Constitutional Denies body ache(s), Denies fatigue - Eyes Denies blurry vision - ENT Denies bleeding gums - *Cardiovascular Denies chest pain at rest - *Respiratory Denies chest congestion - *Gastrointestinal Reports bloating, Denies belching, Denies vomiting blood, Denies nausea, Denies vomiting - *Genitourinary Reports other - *Musculoskeletal Denies joint pain - Integumentary/Breasts Denies bleeding lesions - *Neurologic Denies abnormal hearing, Denies dizziness, Denies headache(s), Denies numbness, Denies weakness - Psychiatric Denies lack of enjoyment - Endocrine Denies excessive sweating - Hematologic/Lymphatic Denies easy bruising - Allergic/Immunologic Denies GI upset with certain foods Meds Home Medications Medication Instructions Recorded Confirmed Type Metformin HCl [Glucophage] 500 mg PO BID 06/22/20 06/22/20 History Allergies Allergy/AdvReac Type Severity Reaction Status Date / Time doxycycline [DOXYCYCLINE] Allergy Mild NA-NAUSEA/V Verified 06/22/20 15:27 OMITING Exam Vital signs and Labs for Last 24 Hours: Temp Pulse Resp BP Pulse Ox 98.0 F 65 19 106/70 L 100 06/23/20 08:00 06/23/20 08:00 06/23/20 08:00 06/23/20 08:00 06/23/20 08:00 Laboratory Results - last 24 hr 06/22/20 16:35: WBC 3.5 L, RBC 4.25, Hgb 13.0, Hct 38.6, MCV 90.7, MCH 30.5, MCHC 33.6, RDW 17.9 H, Plt Count 55 L, MPV 10.5 H, Neut % (Auto) 64.5, Lymph % (Auto) 24.6, [place] % (Auto) 9.3, Eos % (Auto) 1.2, Baso % (Auto) 0.4, Neut # (Auto) 2.2, Lymph # (Auto) 0.9, [place] # (Auto) 0.3, Eos # (Auto) 0.0, Baso # (Auto) 0.0 06/22/20 16:35: Sodium 137, Potassium 3.6, Chloride 102, Carbon Dioxide 29, Anion Gap 9.6, BUN 10, Creatinine 0.50 L, Estimated Creat Clear 197, Estimated GFR 131, Est GFR ( Amer) 158, Glucose 152 H, Calcium 8.0 L, Total Bilirubin 6.1 H, Direct Bilirubin 4.6 H, Indirect Bilirubin 1.5 H, AST 473 H*, ALT 284 H, Alkaline Phosphatase 114, Total Protein 8.0, Albumin 3.3 L, Globulin 4.7 H, Albumin/Globulin Ratio 0.7 L, Lipase 102 06/22/20 16:50: Acetaminophen < 10 L 06/22/20 21:00: Urine Color Dk yellow, Urine Appearance Clear, Urine pH 6.0, Ur Specific [place] 1.02
[2020-06-23 09:37] LABS: Ammonia < 9 umol/L (9-30)
[2020-06-23 09:41] LABS: INR 1.59 (0.9-1.1); Prothrombin Time 15.9 seconds (9.4-11.8)
[2020-06-23 12:17] LABS: POC Glucose,Bedside 81 (70-110)
[2020-06-23 13:15] LABS: Albumin/Globulin Ratio 0.7 (1.1-1.8); Globulin 4.7 g/dL (1.3-3.2)
[2020-06-23 14:52] VITALS: BMI 35.3
--- NOTE | 2020-06-23 15:18 | DIET.NUTRFU ---
Nutritional assessment, IP completed by student Tressa Strickland under my direct supervision.
[2020-06-23 16:00] VITALS: BP 113/70; PULSE 75; RESP 18; TEMP 36.9; O2SAT 98
--- NOTE | 2020-06-23 16:00 | HMH.GEROBB ---
Gastroenterology Consult Consult:: Gastroenterology Consultation Date of Service-June 23, 2020 History of Present Illness: Mrs. Bustillos is a 49-year-old female who had presented 1 month ago and had a CT scan of the abdomen and pelvis on May 13, 2020. There was findings consistent with advanced cirrhosis of the liver with prominent abdominal ascites and portal hypertension. There was nodularity of the liver. There was generalized splenomegaly and varices and generalized anasarca. There were no focal liver masses but the CAT scan was done without contrast and was not liver protocol. At that time she had more ascites. She did improve. Yesterday she redeveloped increased abdominal girth and is admitted with ascites and liver failure. The patient does state that she did drink alcohol more heavily 15 years ago but now does not drink alcohol regularly. She states her last alcoholic beverage was in September 2019 (one half bottle Fireball). The patient's labs show AST 533, ALT 284 and alkaline phosphatase 114. The patient's total bilirubin was 6.3 and INR of 1.5. Her meld score is 19. The patient reports no abdominal pain. She has developed some jaundice. She reports no family history of liver disease. She reports no weight loss. She has had no cognitive impairment. She reports no hematochezia or melena. She has had no hematemesis. She has not had diagnostic evaluation. She reports no use of Tylenol and her recent acetaminophen level was less than 10. Her ammonia level was less than 9. GI was consulted for consideration of paracentesis. Past Medical History: 1. Type 2 diabetes mellitus 2. Hypertension 3. Hyperlipidemia Past Surgical History: 1. Foot surgery in childhood Medications: 1. Metformin ALLERGIES: Doxycycline Social History: The patient is single. She reports no tobacco or alcohol. She does work at [employer] and [employer]. She has no children. Family History: Noncontributory Review of Systems: See chart Physical Examination: Gen.: The patient is a well-developed mildly obese jaundice and icteric individual in no acute distress, she is alert and oriented x3 HEENT: Normocephalic/atraumatic extraocular movements are intact moderately icteric Neck: Supple no lymphadenopathy Chest: Clear to auscultation Cardiovascular: Regular rate and rhythm Abdomen: Normoactive bowel sounds soft, moderate distention with ballotable liver and splenomegaly, no rebound or guarding, no masses Extremities: Trace edema Labs: See chart Radiology: See chart Impression/Plan: 1. Acute on chronic liver disease with evidence of liver failure (ascites, portal hypertension and varices). Given her AST: ALT ratio, I do suspect that this is alcoholism which she is presently denying. However, I do feel that she has risk factors for Garcia. Garcia alone should not result in the significant elevations of AST/ALT. I am going to check her viral hepatitis profile and autoimmune serologies. I will check iron studies to rule out hemochromatosis. She does not have encephalopathy but her scan does show moderate ascites but not tense ascites. There is no evidence of SBP. My greatest concern is her liver failure presently with a MELD score of 19. Until more recently most patients were considered transplant candidates at a score of 17. I do feel that she will need tertiary hepatic transplant team evaluation as an outpatient. I would also recommend paracentesis diagnostically as an outpatient to send for SAAG (serum to ascites albumin gradient) as well as cell count and differential, culture and cytology. She does have moderate varices and will need an EGD as an outpatient as well. I will send JAMES, ASMA (smooth muscle antibody), anti-LK M, MACRINA level, quantitative immunoglobulins, ferritin, TIBC, iron saturation. She should be on a 2 g sodium diet and meet with dietitian. I have explained the significance of hepatic failure and need for further
[2020-06-23 16:40] LABS: POC Glucose,Bedside 93 (70-110)
[2020-06-23 17:26] LABS: Acetone, Serum (Rapid) None Detected (None Detect)
[2020-06-23 17:29] LABS: Iron 101 ug/dL (37-170)
[2020-06-23 17:39] LABS: Total Iron Binding Capacity 413 ug/dL (265-497)
[2020-06-23 18:06] LABS: Ferritin 39.3 ng/ml (6.24-137)
--- NOTE | 2020-06-23 19:11 | PC.NURSE ---
report given to judy
[2020-06-23 19:40] VITALS: BP 115/69; PULSE 85; RESP 24; TEMP 36.8; O2SAT 97
--- NOTE | 2020-06-23 20:04 | PC.NURSE ---
PATIENT A&O X4, LUNGS CLEAR, PULSES EQUAL. DR. ALLISON AT BEDSIDE, ORDERS RECEIVED FOR LAB WORK, OUTPATIENT RADIOLOGY ULTRASOUND GUIDED PARACENTESIS AND OUTPATIENT EGD WHICH WILL BE SCHEDULED BY HIS OFFICE. NO OTHER CONCERNS AT THIS TIME.
[2020-06-23 21:18] LABS: POC Glucose,Bedside 111 (70-110)
--- NOTE | 2020-06-24 03:16 | PC.NURSE ---
Pt A&OX4. Lungs CTA. pt denies any pain or SOA. pt independently ambulated to BR. 16G RAC SL. pt has rested quietly this shift. will continue to monitor.
[2020-06-24 03:17] VITALS: BP 118/71; PULSE 69; RESP 22; TEMP 36.9; O2SAT 97
[2020-06-24 05:00] VITALS: BMI 35.6
[2020-06-24 05:48] LABS: POC Glucose,Bedside 93 (70-110)
[2020-06-24 07:10] LABS: Hep A Ab, IgM Negative (Negative); Hepatitis B Core Antibody IgM Positive (Negative)
[2020-06-24 07:15] LABS: Basophils % 0.4 % (0.1-2.0); Eosinophils # 0.1 K/mm3 (0.0-0.4); Eosinophils % 1.9 % (0.1-12.0); Hematocrit 36.1 % (37.0-47.0); Hemoglobin 11.6 g/dL (12.2-16.2); Lymphocytes # 0.7 K/mm3 (0.7-4.5); Lymphocytes % 27.6 % (10-50); Mean Corpuscular HGB Conc 32.1 g/dL (31.8-35.4); Mean Corpuscular Hemoglobin 30.1 pg (27.0-31.2); Mean Corpuscular Volume 93.7 fl (81-99); Monocytes # 0.3 K/mm3 (0.1-1.0); Monocytes % 10.2 % (1.7-9.3); Neutrophils # 1.5 K/mm3 (1.8-7.8); Neutrophils % 59.9 % (37.0-80.0); Platelet Count 53 K/mm3 (142-424); Red Blood Count 3.86 M/mm3 (4.20-5.40); Red Cell Distribution Width 18.1 % (11.5-17.5); White Blood Count 2.5 K/mm3 (4.8-10.8)
[2020-06-24 07:18] LABS: Chloride 105 mmol/L (98-107); Potassium 3.9 mmoL/L (3.5-5.1); Sodium 136 mmol/L (136-145)
[2020-06-24 07:21] LABS: Amylase 42 U/L (30-110); Anion Gap 6.9 mEq/L (5-15); Blood Urea Nitrogen 9 mg/dl (7-17); Carbon Dioxide 28 mmol/L (22.0-30.0); Creatinine Clearance Estimated 194 mL/min (50-200); Estimated Glomerular Filt Rate 131 ml/min (>60); GFR (African American) 158 ML/MIN (>60); Lipase 69 U/L (23-300)
[2020-06-24 07:22] LABS: Glucose 100 mg/dl (74-100)
[2020-06-24 08:00] VITALS: BP 166/81; PULSE 74; RESP 19; TEMP 36.8; O2SAT 98
[2020-06-24 08:29] LABS: Ammonia 11 umol/L (9-30)
[2020-06-24 11:04] LABS: POC Glucose,Bedside 112 (70-110)
[2020-06-24 15:09] VITALS: BP 124/73; PULSE 81; RESP 19; TEMP 36.9; O2SAT 98
--- NOTE | 2020-06-24 16:34 | HMH.DCSUM ---
General - General Admission date:: 06/22/20 Discharge date: 06/24/20 HPI HPI: 49-year-old female presented to the office with complaints of dark urine and yellowing of the eyes. After evaluation patient was sent to the ER. Patient states for the last week and a half she has had dark dori-colored urine thought she may become and wanted a test that was negative. Patient states she woke up yesterday morning noticing her skin and her eyes were yellow in her abdominal was distended. Patient was admitted for elevated liver enzymes and ascites. Consult placed for Dr. Washburn for possible paracentesis. Patient states she was told some time ago that she had some liver failure but she was unsure who her doctor was or what work-up had been done. Patient denies drinking alcohol. Hospital Course Hospital Course: Laboratory Tests 06/22/20 06/22/20 06/22/20 16:35 16:35 16:50 WBC 3.5 L RBC 4.25 Hgb 13.0 Hct 38.6 MCV 90.7 MCH 30.5 MCHC 33.6 RDW 17.9 H Plt Count 55 L MPV 10.5 H Neut % (Auto) 64.5 Lymph % (Auto) 24.6 [place] % (Auto) 9.3 Eos % (Auto) 1.2 Baso % (Auto) 0.4 Neut # (Auto) 2.2 Lymph # (Auto) 0.9 [place] # (Auto) 0.3 Eos # (Auto) 0.0 Baso # (Auto) 0.0 PT INR Sodium 137 Potassium 3.6 Chloride 102 Carbon Dioxide 29 Anion Gap 9.6 BUN 10 Creatinine 0.50 L Estimated Creat Clear 197 Estimated GFR 131 Est GFR ( Amer) 158 Glucose 152 H POC Glucose Calcium 8.0 L Iron TIBC Iron Saturation Ferritin Total Bilirubin 6.1 H Direct Bilirubin 4.6 H Indirect Bilirubin 1.5 H AST 473 H* ALT 284 H Alkaline Phosphatase 114 Ammonia Total Protein 8.0 Albumin 3.3 L Globulin 4.7 H Albumin/Globulin Ratio 0.7 L Amylase Lipase 102 Urine Color Urine Appearance Urine pH Ur Specific [place] Urine Protein Urine Glucose (UA) Urine Ketones Urine Blood Urine Nitrate Urine Bilirubin Urine Urobilinogen Ur Leukocyte Esterase Urine RBC Urine WBC Ur Squamous Epith Cells Urine Bacteria Urine Mucus Acetaminophen < 10 L Acetone Level 06/22/20 06/22/2020 21:00 21:42 06:14 WBC RBC Hgb Hct MCV MCH MCHC RDW Plt Count MPV Neut % (Auto) Lymph % (Auto) [place] % (Auto) Eos % (Auto) Baso % (Auto) Neut # (Auto) Lymph # (Auto) [place] # (Auto) Eos # (Auto) Baso # (Auto) PT INR Sodium Potassium Chloride Carbon Dioxide Anion Gap BUN Creatinine Estimated Creat Clear Estimated GFR Est GFR ( Amer) Glucose POC Glucose 172 H 88 Calcium Iron TIBC Iron Saturation Ferritin Total Bilirubin Direct Bilirubin Indirect Bilirubin AST ALT Alkaline Phosphatase Ammonia Total Protein Albumin Globulin Albumin/Globulin Ratio Amylase Lipase Urine Color Dk yellow Urine Appearance Clear Urine pH 6.0 Ur Specific [place] 1.020 Urine Protein Negative Urine Glucose (UA) Negative Urine Ketones Negative Urine Blood Trace-i Urine Nitrate Negative Urine Bilirubin 2+ A Urine Urobilinogen >=8.0 Ur Leukocyte Esterase Negative Urine RBC 3-5 Urine WBC 3-5 Ur Squamous Epith Cells 10-20 Urine Bacteria 1+ Urine Mucus 1+ Acetaminophen Acetone Level 06/23/20 06/23/20 06/23/20 08:14 08:14 09:20 WBC 3.3 L RBC 4.21 Hgb 12.8 Hct 39.6 MCV 94.1 MCH 30.4 MCHC 32.3 RDW 18.2 H Plt Count 58 L MPV 10.2 Neut % (Auto) 66.3 Lymph % (Auto) 20.6 [place] % (Auto) 10.6 H Eos % (Auto) 2.1 Baso % (Auto) 0.4 Neut # (Auto) 2.2 Lymph # (Auto) 0.7 [place] # (Auto) 0.3 Eos # (Auto) 0.1 Baso # (Auto) 0.0 PT 15.9 H INR 1.59
[2020-06-24 19:24] LABS: Hepatitis B Surface Antigen Positive (Negative); Hepatitis C Antibody <0.1 s/co ratio (0.0-0.9)
[2020-06-27 09:17] LABS: Actin (Smooth Muscle) Antibody 35 Units (0-19); Mitochondrial (M2) Antibody <20.0 Units (0.0-20.0)
[2020-07-27 09:16] LABS: Antinuclear Antibodies (ANA) NEGATIVE; Liver-Kidney Microsomal Ab 3.1
== END 2020-06-24 16:07 | disposition home or self-care (01) | DRG 433 ==
LOC: ER 16:33 → 2ND 19:15
PROVIDERS: Internal Medicine Gastroenterology; Admitting Provider Family Medicine; Emergency Provider Emergency Medicine; PCP Nurse Practitioner Family; Visit Provider Family Medicine
DX: K74.60 Unspecified cirrhosis of liver (principal); R18.8 Other ascites; E11.9 Type 2 diabetes mellitus without complications; Z79.84 Long term (current) use of oral hypoglycemic drugs; I10 Essential (primary) hypertension; E78.5 Hyperlipidemia, unspecified; Z79.899 Other long term (current) drug therapy
CPT/HCPCS: 36415; 76705; 80048; 80053; 80074; 80329; 81001; 82009; 82140; 82150; 82248; 82728; 82962; 83540; 83550; 83690; 85025; 85610; 86038; 86255; 86256; 86376; 99283; 99284

== ENCOUNTER → 2021-06-07 18:30 | Outpatient (CLI) | payer MEDICAID, SELFPAY ==
[2021-06-07 19:34] LABS: Basophils % 0.4 % (0.1-2.0); Eosinophils # 0.1 K/mm3 (0.0-0.4); Eosinophils % 2.2 % (0.1-12.0); Hematocrit 41.9 % (37.0-47.0); Hemoglobin 14.5 g/dL (12.2-16.2); Lymphocytes # 0.8 K/mm3 (0.7-4.5); Lymphocytes % 20.8 % (10-50); Mean Corpuscular HGB Conc 34.5 g/dL (31.8-35.4); Mean Corpuscular Hemoglobin 31.7 pg (27.0-31.2); Mean Corpuscular Volume 91.9 fl (81-99); Mean Platelet Volume 10.5 fl (7.4-10.4); Monocytes # 0.4 K/mm3 (0.1-1.0); Monocytes % 8.8 % (1.7-9.3); Neutrophils # 2.7 K/mm3 (1.8-7.8); Neutrophils % 67.9 % (37.0-80.0); Platelet Count 55 K/mm3 (142-424); Red Blood Count 4.56 M/mm3 (4.20-5.40); Red Cell Distribution Width 16.9 % (11.5-17.5)
[2021-06-07 19:47] LABS: Alanine Aminotransferase 65 U/L (12-78); Albumin Level 3.4 g/dl (3.5-5.0); Albumin/Globulin Ratio 0.9 (1.1-1.8); Alkaline Phosphatase 109 U/L (38-126); Aspartate Amino Transferase 101 U/L (14-36); Bilirubin,Total 1.2 mg/dl (0.2-1.3); Blood Urea Nitrogen 18 mg/dl (7-17); Calcium 8.2 mg/dl (8.4-10.2); Carbon Dioxide 26 mmol/L (22.0-30.0); Chloride 106 mmol/L (98-107); Chol/HDL Ratio 3.3 (1-3.5); Cholesterol 134 mg/dl (140-200); Estimated Glomerular Filt Rate 88 ml/min (>60); GFR (African American) 107 ML/MIN (>60); Globulin 3.9 g/dL (1.3-3.2); Glucose 134 mg/dl (74-100); HDL Cholesterol 41 mg/dl (40-60); Sodium 138 mmol/L (136-145); Total Protein,Serum 7.3 g/dl (6.3-8.2); Triglycerides 84 mg/dl (30-150); VLDL Cholesterol 17 mg/dL (0-40)
[2021-06-07 20:04] LABS: 25-OH Vitamin D, Total 33.4 ng/mL (30-100)
[2021-06-07 20:17] LABS: Thyroid Stimulating Hormone 1.12 uIU/mL (0.465-4.68)
== END ==
PROVIDERS: Visit Provider Nurse Practitioner Family
DX: Z00.00 Encounter for general adult medical examination without abnormal findings (principal); E11.9 Type 2 diabetes mellitus without complications; E66.3 Overweight; Z68.35 Body mass index [BMI] 35.0-35.9, adult
CPT/HCPCS: 80053; 80061; 82306; 83036; 84443; 85025

== ENCOUNTER 2022-01-29 13:32 | Emergency (ER) | payer MEDICAID, SELFPAY ==
[2022-01-29 13:33] VITALS: BP 110/74; PULSE 97; RESP 16; TEMP 36.8; O2SAT 99; BMI 35.4
--- NOTE | 2022-01-29 14:02 | HMH.EDGENADL ---
ED Disposition Clinical Impression: Gastroenteritis Disposition: Home, Self-Care Condition on Discharge: Good Instructions: DI for Viral Gastroenteritis -- Adult Additional Instructions: Zofran as needed for nausea and vomiting. Clear liquids only today. May resume regular diet tomorrow if vomiting subsides. Additional instructions for VOMITING/DIARRHEA: See your physician as soon as possible for further evaluation. Return immediately if severe abdominal pain, uncontrollable vomiting, shortness of breath, fever, vomiting of blood or abdominal distention. Prescriptions: Ondansetron [Zofran 4mg ODT] 4 mg PO TIDP PRN #10 tab PRN Reason: Nausea And Vomiting Transmission Status: Pending to [id number] Referrals: Saniya Mayers APRN [Primary Care Provider] - Forms: Work/School Release - Critical Care Critical Care Time: No Attestation: On 01/29/22, the high probability of a clinically significant, sudden or life threatening deterioration of the following system(s) required my full and direct attention, intervention and personal management. The time I documented below is in addition to time spent performing reported procedures but includes the following listed in this critical care notation. Medical Decision Making - Kashif Inquiry Pt receiving controlled substance: No Vital Signs: 01/29/22 13:33 01/29/22 14:45 Temperature 98.2 F Temperature Source Oral Pulse Rate [Right Radial] 97 H Respiratory Rate 16 16 Blood Pressure 124/72 Blood Pressure [Right Arm] 110/74 Blood Pressure Mean 90 Blood Pressure Mean [Right Arm] 86 Blood Pressure Source [Right Arm] Automatic Cuff Blood Pressure Position [Right Arm] Sitting 02 Sat by Pulse Oximetry 99 98 Oxygen Delivery Method Room Air - Lab Data Lab Results 01/29/22 13:45: WBC 5.9, RBC 4.47, Hgb 14.4, Hct 43.9, MCV 98.0, MCH 32.2 H, MCHC 32.9, RDW 16.4, Plt Count 61 L, MPV 11.0 H, Neut % (Auto) 76.3, Lymph % (Auto) 13.4, Calloway % (Auto) 8.1, Eos % (Auto) 1.5, Baso % (Auto) 0.7, Neut # (Auto) 4.5, Lymph # (Auto) 0.8, Calloway # (Auto) 0.5, Eos # (Auto) 0.1, Baso # (Auto) 0.0 01/29/22 13:45: Sodium 130 L, Potassium 3.5, Chloride 96 L, Carbon Dioxide 32 H, Anion Gap 5.5, BUN 18 H, Creatinine 0.60, Estimated Creat Clear 157, Estimated GFR 105, Est GFR ( Amer) 127, Glucose 220 H, Calcium 7.1 L, Total Bilirubin 1.6 H, AST 98 H, ALT 75, Alkaline Phosphatase 108, Total Protein 7.6, Albumin 3.6, Globulin 4.0 H, Albumin/Globulin Ratio 0.9 L, Lipase 375 H Result diagrams: 01/29/22 13:45 01/29/22 13:45 Orders (Tests/Meds): ED MEDICATIONS Discontinued Medications Generic Name Dose Route Start Last Admin Trade Name Freq PRN Reason Stop Dose Admin Sodium Chloride 1,000 mls @ 999 mls/hr 01/29/22 13:47 01/29/22 13:50 Sod Chlor 0.9% 1000ml Bag IV 01/29/22 14:47 999 mls/hr .Q1H1M ONE Administration Ondansetron HCl 4 mg 01/29/22 13:47 01/29/22 13:50 Ondansetron 4mg/2ml Vial IV 01/29/22 13:48 4 mg ONCE ONE Administration ORDERS Category Date Time Status Diarrhea 6-11 Panel, Cdiff PCR Stat Lab 01/29/22 14:02 Ordered - Reevaluation(s) Time: 15:28 Reevaluation #1: States she feels better. No further nausea or vomiting. No diarrhea in the emergency department. She is having no pain. Lipase is minimally elevated, not enough to be diagnostic for pancreatitis, and she is having no pain. I feel she can be discharged. She is requesting a note for work and wants to try to work tomorrow. General Adult HPI - General Chief complaint: Nausea/Vomiting/Diarrhea Stated complaint: vomiting Time Seen by Provider: 01/29/22 14:00 Mode of Arrival: Ambulatory Limitations: No Limitations Description of Symptoms (Recalled from ER Triage Doc. by RN): Pt c/o N/V/D since this AM. Pt states that she has also had a knot under her umbilicus x2 weeks. Denies abd pain - History of Present Illness HPI narrative: 10-hour
[2022-01-29 14:05] LABS: Chloride 96 mmol/L (98-107); Potassium 3.5 mmoL/L (3.5-5.1); Sodium 130 mmol/L (136-145)
[2022-01-29 14:06] LABS: Basophils % 0.7 % (0.1-2.0); Eosinophils # 0.1 K/mm3 (0.0-0.4); Eosinophils % 1.5 % (0.1-12.0); Hematocrit 43.9 % (37.0-47.0); Hemoglobin 14.4 g/dL (12.2-16.2); Lymphocytes # 0.8 K/mm3 (0.7-4.5); Lymphocytes % 13.4 % (10-50); Mean Corpuscular HGB Conc 32.9 g/dL (31.8-35.4); Mean Corpuscular Hemoglobin 32.2 pg (27.0-31.2); Monocytes # 0.5 K/mm3 (0.1-1.0); Monocytes % 8.1 % (1.7-9.3); Neutrophils # 4.5 K/mm3 (1.8-7.8); Neutrophils % 76.3 % (37.0-80.0); Platelet Count 61 K/mm3 (142-424); Red Blood Count 4.47 M/mm3 (4.20-5.40); Red Cell Distribution Width 16.4 % (11.5-17.5); White Blood Count 5.9 K/mm3 (4.8-10.8)
[2022-01-29 14:07] LABS: Alanine Aminotransferase 75 U/L (12-78); Blood Urea Nitrogen 18 mg/dl (7-17); Creatinine Clearance Estimated 157 mL/min (50-200); Estimated Glomerular Filt Rate 105 ml/min (>60); GFR (African American) 127 ML/MIN (>60)
[2022-01-29 14:08] LABS: Albumin Level 3.6 g/dl (3.5-5.0); Albumin/Globulin Ratio 0.9 (1.1-1.8); Alkaline Phosphatase 108 U/L (38-126); Anion Gap 5.5 mEq/L (5-15); Aspartate Amino Transferase 98 U/L (14-36); Bilirubin,Total 1.6 mg/dl (0.2-1.3); Calcium 7.1 mg/dl (8.4-10.2); Carbon Dioxide 32 mmol/L (22.0-30.0); Glucose 220 mg/dl (74-100); Lipase 375 U/L (23-300); Total Protein,Serum 7.6 g/dl (6.3-8.2)
--- NOTE | 2022-01-29 14:36 | PC.NURSE ---
pt comfortable in room
[2022-01-29 14:45] VITALS: BP 124/72; RESP 16; O2SAT 98
[2022-01-29 15:39] VITALS: BP 126/74; PULSE 90; RESP 18; TEMP 36.8; O2SAT 97
== END 2022-01-29 15:40 | disposition home or self-care (01) ==
PROVIDERS: Emergency Provider Emergency Medicine; PCP Nurse Practitioner Family
DX: K52.9 Noninfective gastroenteritis and colitis, unspecified (principal); K70.30 Alcoholic cirrhosis of liver without ascites; K21.9 Gastro-esophageal reflux disease without esophagitis; I10 Essential (primary) hypertension; E78.5 Hyperlipidemia, unspecified; Z79.899 Other long term (current) drug therapy
CPT/HCPCS: 80053; 83690; 85025; 96365; 96375; 99284; J2405

== ENCOUNTER 2022-02-04 15:56 | Emergency (ER) | payer MEDICAID, SELFPAY ==
[2022-02-04 16:32] VITALS: BP 128/80; PULSE 105; RESP 16; TEMP 36.9; O2SAT 96; BMI 37.8
--- NOTE | 2022-02-04 16:40 | XR_ITS ---
PROCEDURE INFORMATION: Exam: XR Chest Exam date and time: 02/04/2022 4:40 PM Age: 51 years old Clinical indication: Shortness of breath; Additional info: Wheezing, SOB and ascites in abdomen TECHNIQUE: Imaging protocol: XR of the chest. Views: 2 views. COMPARISON: CR XR CHEST PORTABLE 05/03/2020 5:04 PM FINDINGS: Lungs: Underlying left lower lobe infiltrative changes cannot be excluded. Atelectatic and/or early infiltrative changes noted within the right lung base. Pleural spaces: Large left pleural effusion. There is no evidence of pneumothorax. Heart/Mediastinum: Cardiac margins are obscured. Bones/joints: The thoracic spine demonstrates mild degenerative changes at multiple levels. Old fracture of the left proximal humerus. IMPRESSION: 1. Large left pleural effusion. Underlying left lower lobe infiltrative changes cannot be excluded. 2. Atelectatic and/or early infiltrative changes noted within the right lung base.
--- NOTE | 2022-02-04 17:05 | ECG_ITS ---
APPROVED REPORT Exam: Resting ECG HR:101 bpm ECG Measurements Heart Rate 101 AXES GA 120 P 12 QRSd 81 QRS 26 QT 362 T 24 QTc 420 Conclusion SINUS TACHYCARDIA ABNORMAL RHYTHM ECG UNCONFIRMED REPORT Electronically signed by : Dc Ellington MD 02/05/2022 14:06:47
[2022-02-04 17:07] LABS: Basophils # 0.1 K/mm3 (0-0.2); Basophils % 2.1 % (0.1-2.0); Eosinophils # 0.1 K/mm3 (0.0-0.4); Eosinophils % 1.1 % (0.1-12.0); Hematocrit 42.5 % (37.0-47.0); Hemoglobin 14.3 g/dL (12.2-16.2); Lymphocytes # 1.3 K/mm3 (0.7-4.5); Lymphocytes % 18.7 % (10-50); Mean Corpuscular HGB Conc 33.5 g/dL (31.8-35.4); Mean Corpuscular Hemoglobin 32.4 pg (27.0-31.2); Mean Corpuscular Volume 96.6 fl (81-99); Mean Platelet Volume 10.4 fl (7.4-10.4); Monocytes # 0.6 K/mm3 (0.1-1.0); Monocytes % 8.8 % (1.7-9.3); Neutrophils # 4.7 K/mm3 (1.8-7.8); Neutrophils % 69.2 % (37.0-80.0); Platelet Count 73 K/mm3 (142-424); Red Cell Distribution Width 17.1 % (11.5-17.5); White Blood Count 6.8 K/mm3 (4.8-10.8)
--- NOTE | 2022-02-04 17:10 | CT_ITS ---
PROCEDURE INFORMATION: Exam: CT Abdomen And Pelvis With Contrast Exam date and time: 02/04/2022 5:10 PM Age: 51 years old Clinical indication: Bloating; Additional info: Anorectal abscess vs other. TECHNIQUE: Imaging protocol: Computed tomography of the abdomen and pelvis with contrast. Radiation optimization: All CT scans at this facility use at least one of these dose optimization techniques: automated exposure control; mA and/or kV adjustment per patient size (includes targeted exams where dose is matched to clinical indication); or iterative reconstruction. Contrast material: ISOVUE; Contrast volume: 75 ml; Contrast route: IV; COMPARISON: CT ABDOMEN PELVIS WO CON 05/13/2020 5:54 PM FINDINGS: Liver: Nodular contour of the liver is present with cirrhotic changes. Gallbladder and bile ducts: Gallbladder is contracted. Pancreas: Normal. No ductal dilation. Spleen: Perihepatic and perisplenic varices are present. Splenomegaly. Adrenal glands: Normal. No mass. Kidneys and ureters: Normal. No hydronephrosis. Stomach and bowel: A large amount of stool is noted throughout the colon. Thickening of the donahue of the stomach and duodenum consistent with gastroduodenitis. Appendix: No evidence of appendicitis. Intraperitoneal space: There is a moderate amount of free intraperitoneal fluid present. Vasculature: See Spleen finding. Lymph nodes: There are multiple nonspecific nonpathologic but prominent lymph nodes in the mesentery. There are no mesenteric lymph nodes of pathologic dimensions. Several prominent retroperitoneal lymph nodes are present. Urinary bladder: Unremarkable as visualized. Reproductive: Unremarkable as visualized. Anus: No discrete anal rectal abscess as imaged. Bones/joints: Unremarkable. No acute fracture. Soft tissues: Diffuse soft tissue edematous changes are present. IMPRESSION: 1. There is a moderate amount of free intraperitoneal fluid present. 2. No discrete anal rectal abscess as imaged. 3. Nodular contour of the liver is present with cirrhotic changes. 4. Splenomegaly. 5. A large amount of stool is noted throughout the colon. 6. Diffuse soft tissue edematous changes are present. 7. Thickening of the donahue of the stomach and duodenum consistent with gastroduodenitis. Are
[2022-02-04 17:15] LABS: Alanine Aminotransferase 59 U/L (12-78); Albumin Level 3.6 g/dl (3.5-5.0); Albumin/Globulin Ratio 0.9 (1.1-1.8); Alkaline Phosphatase 104 U/L (38-126); Anion Gap 10.3 mEq/L (5-15); Aspartate Amino Transferase 89 U/L (14-36); Bilirubin,Total 1.9 mg/dl (0.2-1.3); Blood Urea Nitrogen 17 mg/dl (7-17); Calcium 7.5 mg/dl (8.4-10.2); Carbon Dioxide 28 mmol/L (22.0-30.0); Chloride 99 mmol/L (98-107); Creatinine Clearance Estimated 188 mL/min (50-200); Estimated Glomerular Filt Rate 130 ml/min (>60); GFR (African American) 157 ML/MIN (>60); Globulin 4.2 g/dL (1.3-3.2); Glucose 173 mg/dl (74-100); Potassium 3.3 mmoL/L (3.5-5.1); Sodium 134 mmol/L (136-145); Total Protein,Serum 7.8 g/dl (6.3-8.2)
[2022-02-04 17:24] LABS: Lipase 144 U/L (23-300)
[2022-02-04 17:31] LABS: C-Reactive Protein 44.2 mg/L (0-4)
[2022-02-04 18:01] VITALS: BP 115/73; PULSE 101; O2SAT 95
[2022-02-04 18:09] LABS: Microscopic, Urine URINE MICROSCOPIC (MICROSCOPIC)
[2022-02-04 18:13] LABS: Appearance,Urine CLEAR (Clear); Bilirubin,Urine Negative (Negative); Blood, Urine 1+ (Negative); Color,Urine YELLOW (Yellow); Glucose,Urine (UA) Negative (Negative); Ketones,Urine Negative (Negative); Leukocyte Esterase,Urine TRACE (Negative); Nitrate,Urine Negative (Negative); Protein,Urine Negative (Negative); Specific Gravity, Urine <= 1.005 (1.005-1.030)
[2022-02-04 18:14] LABS: Lactic Acid 1.3 mmol/L (0.7-2.1)
[2022-02-04 18:21] VITALS: BP 141/87; PULSE 107; O2SAT 95
[2022-02-04 18:44] LABS: Bacteria,Urine Trace /lpf
[2022-02-04 19:02] LABS: INR 1.18 (0.9-1.1); Prothrombin Time 13.2 seconds (10.1-12.5)
[2022-02-04 21:53] LABS: Appearance,Body Fld. Normal; Source, Body Fld. Peritoneal Fluid; Volume,Body Fld. 24 mL
[2022-02-04 22:00] LABS: TNC,Body Fluid 88 cells/uL (< 1000)
[2022-02-04 22:01] LABS: RBC,Body Fluid < 10 cells/uL (< 10 X 10^3)
--- NOTE | 2022-02-04 22:41 | HMH.EDGENADL ---
ED Disposition Clinical Impression: Ascites Qualifiers: Ascites type: due to alcoholic cirrhosis Qualified Code(s): K70.31 - Alcoholic cirrhosis of liver with ascites Disposition: Home, Self-Care Condition on Discharge: Fair Instructions: DI for Nausea -- Adult, DI for Nausea -- Child, DI for Diarrhea and Traveler's Diarrhea -- Adult, DI for Diarrhea and Traveler's Diarrhea -- Child Additional Instructions: Is continue to monitor your condition closely at home for the symptoms we discussed. If your condition worsens or any other concerns arise, please return to the emergency department for reassessment immediately. Otherwise, please follow-up with her primary care physician in 1 to 2 days to learn of the remainder of the lab work. Referrals: Saniya Mayers APRN [Primary Care Provider] - - Critical Care Critical Care Time: No Attestation: On 02/04/22, the high probability of a clinically significant, sudden or life threatening deterioration of the following system(s) required my full and direct attention, intervention and personal management. The time I documented below is in addition to time spent performing reported procedures but includes the following listed in this critical care notation. Medical Decision Making - Medical Records Medical records reviewed: Yes: I reviewed the patient's medical records. - Kashif Inquiry Pt receiving controlled substance: Yes (Acute pain control) Kashif was queried for this patient: No Risks and benefits of using a controlled substance: were not discussed with pt by me Vital Signs: 02/04/22 16:32 02/04/22 18:01 02/04/22 18:21 Temperature 98.5 F Temperature Source Oral Pulse Rate 101 H 107 H Pulse Rate [Left Radial] 105 H Respiratory Rate 16 Blood Pressure 115/73 141/87 H Blood Pressure [Right Arm] 128/80 Blood Pressure Mean [Right Arm] 96 02 Sat by Pulse Oximetry 96 95 95 Oxygen Delivery Method Room Air - Lab Data Lab results reviewed: Yes: I reviewed the patient's lab results. Lab Results 02/04/22 15:55: WBC 6.8, RBC 4.40, Hgb 14.3, Hct 42.5, MCV 96.6, MCH 32.4 H, MCHC 33.5, RDW 17.1, Plt Count 73 L, MPV 10.4, Neut % (Auto) 69.2, Lymph % (Auto) 18.7, Barton % (Auto) 8.8, Eos % (Auto) 1.1, Baso % (Auto) 2.1 H, Neut # (Auto) 4.7, Lymph # (Auto) 1.3, Barton # (Auto) 0.6, Eos # (Auto) 0.1, Baso # (Auto) 0.1 02/04/22 15:55: Sodium 134 L, Potassium 3.3 L, Chloride 99, Carbon Dioxide 28, Anion Gap 10.3, BUN 17, Creatinine 0.50 L, Estimated Creat Clear 188, Estimated GFR 130, Est GFR ( Amer) 157, Glucose 173 H, Calcium 7.5 L, Total Bilirubin 1.9 H, AST 89 H, ALT 59, Alkaline Phosphatase 104, Total Protein 7.8, Albumin 3.6, Globulin 4.2 H, Albumin/Globulin Ratio 0.9 L 02/04/22 15:57: C-Reactive Protein 44.2 H, Lipase 144 02/04/22 15:57: PT 13.2 H, INR 1.18 H 02/04/22 17:39: Lactate 1.3 02/04/22 18:00: Urine Color Yellow, Urine Appearance Clear, Urine pH 6.0, Ur Specific Marshall <= 1.005, Urine Protein Negative, Urine Glucose (UA) Negative, Urine Ketones Negative, Urine Blood 1+, Urine Nitrate Negative, Urine Bilirubin Negative, Urine Urobilinogen 2.0, Ur Leukocyte Esterase Trace, Urine RBC 3-5, Urine WBC 3-5, Ur Squamous Epith Cells 5-10, Urine Bacteria Trace 02/04/22 20:52: Fluid Source Peritoneal fluid, Fluid Volume 24, Fluid Appearance Normal, Fluid RBC (Auto) < 10, Fld Tot Nucleated Cell 88 Result diagrams: 02/04/22 15:55 02/04/22 15:55 Orders (Tests/Meds): ED MEDICATIONS Generic Name Dose Route Start Last Admin Trade Name Freq PRN Reason Stop Dose Admin Sodium Chloride 1,000 mls @ 999 mls/hr 02/04/22 17:00 02/04/22 17:07 Sod Chlor 0.9% 1000ml Bag IV 02/04/22 18:00 999 mls/hr .Q1H1M BETTINA Administration Sodium Chloride 10 ml 02/04/22 17:00 Sodium Chloride 0.9% 10ml Flush Syringe IV 03/06/22 16:59 NEEDED PRN Maintain IV Site Discontinued Medications Generic Name Dose Route Start Last Admin Trade Name Freq OR
[2022-02-04 22:52] VITALS: BP 140/85; PULSE 75; RESP 18; TEMP 36.7; O2SAT 99
[2022-02-04 23:39] LABS: Mononuclear WBCs,Body Fluid 18 %; Polynuclear WBC,Body Fluid 44 %
== END 2022-02-04 22:58 | disposition home or self-care (01) ==
PROVIDERS: Emergency Provider Emergency Medicine; PCP Nurse Practitioner Family
DX: K70.31 Alcoholic cirrhosis of liver with ascites (principal); E11.65 Type 2 diabetes mellitus with hyperglycemia; K21.9 Gastro-esophageal reflux disease without esophagitis; E78.5 Hyperlipidemia, unspecified; I10 Essential (primary) hypertension
CPT/HCPCS: 49082; 71046; 74177; 80053; 81001; 83605; 83690; 85025; 85610; 86140; 87070; 87205; 89051; 93005; 96365; 96375; 99285; J2405; Q9967

== ENCOUNTER 2022-02-17 21:38 | Emergency (ER) | payer MEDICAID, SELFPAY ==
[2022-02-17] VITALS (10 sets, daily range): BP systolic 83–124; BP diastolic 52–86; PULSE 85–95; RESP 24; TEMP 34.3–34.7; O2SAT 89–93; BMI 38.9
--- NOTE | 2022-02-17 21:42 | XR_ITS ---
PROCEDURE INFORMATION: Exam: XR Chest Exam date and time: 02/17/2022 10:45 PM Age: 51 years old Clinical indication: Shortness of breath; Additional info: SOA TECHNIQUE: Imaging protocol: XR of the chest. Views: 1 view. COMPARISON: CR XR CHEST 2V 02/04/2022 4:50 PM FINDINGS: Lungs: Right lower lobe opacities concerning for pneumonia. Pleural spaces: Large left pleural effusion. Mild right pleural effusion. Heart/Mediastinum: Cardiomegaly. Bones/joints: Unremarkable. IMPRESSION: 1. Large left pleural effusion. 2. Right lower lobe densities are new from previous study which could indicate atelectasis versus pneumonia.
--- NOTE | 2022-02-17 21:42 | ECG_ITS ---
APPROVED REPORT Exam: Resting ECG HR:85 bpm ECG Measurements Heart Rate 85 AXES MO 153 P 41 QRSd 90 QRS 30 QT 383 T 54 QTc 425 Conclusion SINUS RHYTHM POSSIBLE LATERAL MYOCARDIAL INFARCTION , PROBABLY OLD [30 ms Q WAVE IN I/aVL/V5/V6] BORDERLINE ECG UNCONFIRMED REPORT Electronically signed by : Dc Ellington MD 02/18/2022 19:46:03
--- NOTE | 2022-02-17 21:42 | CT_ITS ---
PROCEDURE INFORMATION: Exam: CT Abdomen And Pelvis With Contrast Exam date and time: 02/17/2022 10:38 PM Age: 51 years old Clinical indication: Other: Abdomen distention SOB TECHNIQUE: Imaging protocol: Computed tomography of the abdomen and pelvis with contrast. Radiation optimization: All CT scans at this facility use at least one of these dose optimization techniques: automated exposure control; mA and/or kV adjustment per patient size (includes targeted exams where dose is matched to clinical indication); or iterative reconstruction. Contrast material: ISOVUE; Contrast volume: 75 ml; Contrast route: IV; COMPARISON: CT ABDOMEN PELVIS W CON 02/04/2022 5:25 PM FINDINGS: Pleural spaces: Large left pleural effusion. In the left lung base there is consolidation concerning for atelectasis. A scattered areas of focal nodularity in the right lung base concerning for pneumonia. Liver: Cirrhosis. Gallbladder and bile ducts: Tiny layering calcified stones. No ductal dilation. Pancreas: Normal. No ductal dilation. Spleen: Normal. No splenomegaly. Adrenal glands: Normal. No mass. Kidneys and ureters: Normal. No hydronephrosis. Stomach and bowel: There is diffuse colonic wall thickening concerning for pancolitis. No small bowel obstruction. Appendix: No evidence of appendicitis. Intraperitoneal space: Large volume abdominopelvic ascites. Vasculature: Partially occlusive thrombus in the portal vein. Lymph nodes: Unremarkable. No enlarged lymph nodes. Urinary bladder: Unremarkable as visualized. Reproductive: Unremarkable as visualized. Bones/joints: Unremarkable. No acute fracture. Soft tissues: Unremarkable. IMPRESSION: 1. Large volume abdominopelvic ascites. 2. Cirrhosis. 3. Large left pleural effusion and associated atelectasis. The mild areas of pneumonia in the right lower lobe cannot be ruled out. 4. Layering gallstones. 5. Pancolitis.
--- NOTE | 2022-02-17 21:52 | PC.NURSE ---
Pt placed in bear hugger at this time
[2022-02-17 22:03] LABS: Alanine Aminotransferase 85 U/L (12-78); Alkaline Phosphatase 112 U/L (38-126); Aspartate Amino Transferase 126 U/L (14-36); Blood Urea Nitrogen 33 mg/dl (7-17); Carbon Dioxide 21 mmol/L (22.0-30.0); Creatinine Clearance Estimated 104 mL/min (50-200); Estimated Glomerular Filt Rate 58 ml/min (>60); GFR (African American) 70 ML/MIN (>60)
[2022-02-17 22:05] LABS: Prothrombin Time 27.4 seconds (10.1-12.5)
[2022-02-17 22:06] LABS: Albumin Level 2.9 g/dl (3.5-5.0); Basophils % 0.3 % (0.1-2.0); Hemoglobin 16.4 g/dL (12.2-16.2); Lymphocytes # 0.3 K/mm3 (0.7-4.5); Total Protein,Serum 6.9 g/dl (6.3-8.2)
[2022-02-17 22:10] LABS: Eosinophils % 0.3 % (0.1-12.0); Hematocrit 48.6 % (37.0-47.0); Lymphocytes % 2.8 % (10-50); Mean Corpuscular HGB Conc 33.7 g/dL (31.8-35.4); Mean Corpuscular Hemoglobin 32.3 pg (27.0-31.2); Mean Corpuscular Volume 95.9 fl (81-99); Mean Platelet Volume 10.8 fl (7.4-10.4); Monocytes # 0.2 K/mm3 (0.1-1.0); Monocytes % 2.3 % (1.7-9.3); Neutrophils # 8.8 K/mm3 (1.8-7.8); Neutrophils % 94.2 % (37.0-80.0); Red Blood Count 5.07 M/mm3 (4.20-5.40); Red Cell Distribution Width 17.5 % (11.5-17.5); White Blood Count 9.4 K/mm3 (4.8-10.8)
[2022-02-17 22:11] LABS: Lactic Acid 7.3 mmol/L (0.7-2.1)
[2022-02-17 22:12] LABS: Platelet Count 41 K/mm3 (142-424)
[2022-02-17 22:13] LABS: MANUAL DIFFERENTIAL MANUAL DIFFERENTIAL (MANUAL DIFF)
[2022-02-17 22:19] LABS: Troponin I 0.05 ng/ml (0.00-0.034)
[2022-02-17 22:31] LABS: Bilirubin, Conjugated 4.7 mg/dL (0.0-0.3); Calcium 8.3 mg/dl (8.4-10.2); Chloride 94 mmol/L (98-107); Glucose 110 mg/dl (74-100); Magnesium 1.5 mg/dl (1.6-2.3); Sodium 127 mmol/L (136-145)
--- NOTE | 2022-02-17 22:32 | PC.NURSE ---
Pt ambulated to BR with standby assist. Unable to collect urine because she missed collection device.
[2022-02-17 22:33] LABS: Bilirubin,Indirect 3.4 mg/dL (0.0-0.9); Bilirubin,Total 9.4 mg/dl (0.2-1.3)
--- NOTE | 2022-02-17 22:33 | PC.NURSE ---
Pt headed to CT
[2022-02-17 22:40] LABS: Lymphocytes % 6 % (10-50); Neutrophils % 82 % (42-76); Platelet Estimate Marked Decrease; RBC Morphology Normal; Total Cells Counted 100
--- NOTE | 2022-02-17 23:06 | HMH.EDSOB ---
ED Disposition Clinical Impression: Severe sepsis with acute organ dysfunction, SBP (spontaneous bacterial peritonitis), Pleural effusion Cirrhosis Qualifiers: Hepatic cirrhosis type: unspecified hepatic cirrhosis Ascites presence: with ascites Qualified Code(s): K74.60 - Unspecified cirrhosis of liver; R18.8 - Other ascites Abdominal ascites Qualifiers: Ascites type: other type Qualified Code(s): R18.8 - Other ascites Disposition: Xfer Short-Term Hosp Condition on Discharge: Serious Referrals: Jackson Hernandez MD [Primary Care Provider] - - Critical Care Critical Care Time: Yes Attestation: On 02/17/22, the high probability of a clinically significant, sudden or life threatening deterioration of the following system(s) required my full and direct attention, intervention and personal management. The time I documented below is in addition to time spent performing reported procedures but includes the following listed in this critical care notation. Total Critical Care Time: 120 Vital system(s) involved:: Metabolic Failure My critical care processes included: Assessment & monitoring of V/S, Initial and Re-exams, Data Review/Interpretation, Coordinating Care, Medication Orders and management, Documentation Medical Decision Making - Medical Records Medical records reviewed: Yes: I reviewed the patient's medical records. - Kashif Inquiry Pt receiving controlled substance: No Vital Signs: 02/17/22 21:38 02/17/22 21:56 02/17/22 21:58 Temperature 93.8 F L Temperature Source Rectal Pulse Rate 86 87 Pulse Rate [Right Radial] 85 Respiratory Rate 24 Blood Pressure 94/55 L 103/86 L Blood Pressure [Right Arm] 109/73 L Blood Pressure Mean 70 90 Blood Pressure Mean [Right Arm] 85 Blood Pressure Source [Right Arm] Automatic Cuff Blood Pressure Position [Right Arm] Sitting 02 Sat by Pulse Oximetry 92 L 93 L 91 L Oxygen Delivery Method Room Air 02/17/22 22:00 02/17/22 22:54 02/17/22 23:00 Temperature 94.4 F L Temperature Source Rectal Pulse Rate 91 H Pulse Rate [Right Radial] Respiratory Rate Blood Pressure 109/73 L 124/72 Blood Pressure [Right Arm] Blood Pressure Mean 84 89 Blood Pressure Mean [Right Arm] Blood Pressure Source [Right Arm] Blood Pressure Position [Right Arm] 02 Sat by Pulse Oximetry 90 L Oxygen Delivery Method 02/17/22 23:21 02/17/22 23:24 02/17/22 23:31 Temperature Temperature Source Pulse Rate 95 H 93 H 94 H Pulse Rate [Right Radial] Respiratory Rate Blood Pressure 83/52 L 97/59 L 100/58 L Blood Pressure [Right Arm] Blood Pressure Mean 62 71 63 Blood Pressure Mean [Right Arm] Blood Pressure Source [Right Arm] Blood Pressure Position [Right Arm] 02 Sat by Pulse Oximetry 92 L 89 L 89 L Oxygen Delivery Method 02/17/22 23:55 02/18/22 00:00 02/18/22 00:26 Temperature 94.9 F L Temperature Source Rectal Pulse Rate 91 H 100 H Pulse Rate [Right Radial] Respiratory Rate Blood Pressure 123/86 122/105 H Blood Pressure [Right Arm] Blood Pressure Mean 89 109 Blood Pressure Mean [Right Arm] Blood Pressure Source [Right Arm] Blood Pressure Position [Right Arm] 02 Sat by Pulse Oximetry 90 L 89 L Oxygen Delivery Method 02/18/22 00:35 02/18/22 00:37 02/18/22 00:43 Temperature Temperature Source Pulse Rate 102 H 101 H 94 H Pulse Rate [Right Radial] Respiratory Rate Blood Pressure 151/130 H 137/119 H 106/76 L Blood Pressure [Right Arm] Blood Pressure Mean 135 125 86 Blood Pressure Mean [Right Arm] Blood Pressure Source [Right Arm] Blood Pressure Position [Right Arm] 02 Sat by Pulse Oximetry 91 L 90 L 92 L Oxygen Delivery Method 02/18/22 01:00 02/18/22 01:15 02/18/22 01:30 Temperature 96.4 F L Temperature Source Rectal Pulse Rate 97 H 103 H Pulse Rate [Right Radial] Respiratory Rate Blood Pressure 122/73 116/78 Blood Pressure [[facility]
[2022-02-17 23:33] LABS: Microscopic, Urine URINE MICROSCOPIC (MICROSCOPIC)
--- NOTE | 2022-02-17 23:40 | PC.NURSE ---
2LNC applied at this time
[2022-02-17 23:47] LABS: Coronavirus 19, PCR Not Detected (NotDetected); Influenza A, PCR Not Detected (NotDetected); Influenza B, PCR Not Detected (NotDetected)
[2022-02-18] VITALS (12 sets, daily range): BP systolic 104–151; BP diastolic 68–130; PULSE 94–109; RESP 30; TEMP 34.9–36.6; O2SAT 87–96
[2022-02-18 00:06] LABS: Appearance,Urine CLEAR (Clear); Blood, Urine TRACE-I (Negative); Color,Urine YELLOW (Yellow); Glucose,Urine (UA) Negative (Negative); Ketones,Urine Negative (Negative); Leukocyte Esterase,Urine Negative (Negative); Nitrate,Urine Negative (Negative); PH,Urine 5.5 (5.0-8.5); Protein,Urine Negative (Negative); Specific Gravity, Urine 1.025 (1.005-1.030)
[2022-02-18 00:11] LABS: Bilirubin,Urine 2+ (Negative)
[2022-02-18 00:21] LABS: Ammonia 12 umol/L (9-30)
[2022-02-18 00:28] LABS: Amorphous Sediment,Urine Trace /lpf; Mucus,Urine 4+ /lpf
[2022-02-18 00:37] LABS: Amphetamine/Metha Screen,Urine Negative ng/ml (<1000)
[2022-02-18 00:38] LABS: Barbiturates Screen,Urine Negative ng/ml (<200); Benzodiazepines Screen,Urine Negative ng/ml (<200)
[2022-02-18 00:39] LABS: Cannabinoid Screen,Urine Negative ng/ml (<50)
[2022-02-18 00:40] LABS: Cocaine Screen,Urine Negative ng/ml (<300); Methadone Screen,Urine Negative ng/ml (<300)
[2022-02-18 00:41] LABS: Opiate Screen,Urine Negative ng/ml (<300)
[2022-02-18 00:42] LABS: Phencyclidine Screen,Urine Negative ng/ml (<25)
[2022-02-18 01:42] LABS: Troponin I 0.07 ng/ml (0.00-0.034)
[2022-02-18 01:53] LABS: Reflex Lactic Add Lactic Reflex
--- NOTE | 2022-02-18 02:08 | PC.NURSE ---
RT at bedside to obtain ABG
[2022-02-18 02:22] LABS: ABG Base Excess -11.9 mmol/L (-2.4-2.3); ABG HCO3 16.1 mmhg (22.0-26.0); ABG Oxygen Saturation 89 % (90-100); ABG PCO2 42.4 mmhg (35.0-45.0); ABG PO2 67.8 mmhg (80-100); ABG TCO2 17.4 mmhg (23-27); Allen's Test Y; Oxygen 4 %; Source Right Radial
--- NOTE | 2022-02-18 02:24 | PC.NURSE ---
PT REPOSITIONED FOR COMFORT. NADN. WREN.
[2022-02-18 02:33] LABS: Lactic Acid Follow Up (RFLX 1) 7.7 mmol/L (0.7-2.1)
--- NOTE | 2022-02-18 02:35 | PC.NURSE ---
Critical lactic of 7.7 reported to Mary at this time. Awaiting new orders.
--- NOTE | 2022-02-18 02:39 | PC.NURSE ---
ER talking to [facility] MDs per possible transfer
--- NOTE | 2022-02-18 02:52 | PC.NURSE ---
EMANUEL LOWE speaking with [facility] about transfer
--- NOTE | 2022-02-18 02:57 | PC.NURSE ---
RT placed pt on 40% venti mask after drawing ABG
--- NOTE | 2022-02-18 03:31 | PC.NURSE ---
Report given to Estefany at this time.
== END 2022-02-18 03:41 | disposition short-term general hospital (02) ==
PROVIDERS: Emergency Provider Emergency Medicine; PCP Emergency Medicine
DX: K65.2 Spontaneous bacterial peritonitis (principal); K74.60 Unspecified cirrhosis of liver; A41.9 Sepsis, unspecified organism; J90 Pleural effusion, not elsewhere classified; R18.8 Other ascites; I10 Essential (primary) hypertension; E78.5 Hyperlipidemia, unspecified; F33.1 Major depressive disorder, recurrent, moderate; K21.9 Gastro-esophageal reflux disease without esophagitis; Z79.899 Other long term (current) drug therapy
CPT/HCPCS: 36415; 51702; 71045; 74177; 80048; 80076; 80305; 81001; 82140; 82803; 83605; 83735; 84484; 85007; 85025; 85610; 87040; 93005; 96365; 96375; 99285; C9803; J2543; Q9967; U0003; U0005